=== PATIENT | female | born 1955 | race Caucasian/White ===

== ENCOUNTER 2016-07-20 08:54 | Day surgery (SDC) | payer MEDICARE, MEDICAID ==
[2016-07-20 09:42] LABS: HEMATOCRIT 32.1 % (36.0-47.0); HEMOGLOBIN 10.7 g/dL (12.0-15.5); MEAN CORPUSCULAR HEMOGLOBIN 34.2 pg (27.0-33.4); MEAN CORPUSCULAR HGB CONC 33.1 g/dL (32.0-36.0); MEAN CORPUSCULAR VOLUME 103 fl (80-97); RED BLOOD COUNT 3.12 10^6/uL (3.72-5.28); RED CELL DISTRIBUTION WIDTH 19.1 % (11.5-14.0); WHITE BLOOD COUNT 6.7 10^3/uL (4.0-10.5)
[2016-07-20 09:54] LABS: ANION GAP 8 (5-19); BLOOD UREA NITROGEN 21 mg/dL (7-20); CARBON DIOXIDE 26 mmol/L (22-30); CHLORIDE 98 mmol/L (98-107); CREATININE RESULT 2.99 mg/dL (0.52-1.25); GLUCOSE 109 mg/dL (75-110); SODIUM 132.4 mmol/L (137-145)
[2016-07-20] MEDS ORDERED: LIDOCAINE 0.5% INJ-PF (5 MG/ML) 50 ML SDV ONE (10:50)
[2016-07-20] MEDS ORDERED: MIDAZOLAM 2 MG/2 ML INJ ONE (10:51)
[2016-07-20] MEDS ORDERED: FENTANYL CITRATE INJ/PF 100 MCG/2 ML AMPUL ONE (10:51)
[2016-07-20] MEDS ORDERED: BACITRACIN INJ 50,000 UNIT VIAL INJ PRN (11:00)
[2016-07-20] MEDS ORDERED: VANCOMYCIN HCL 500 MG in DEXTROSE 5%-WATER 100 ML IV ONE (11:30)
[2016-07-20 13:45] VITALS: BP 127/55
--- NOTE | 2016-07-20 19:00 | EKG REPORT ---
SEVERITY:- ABNORMAL ECG - SINUS RHYTHM IVCD, CONSIDER ATYPICAL RBBB LVH WITH IVCD, LAD AND SECONDARY REPOL ABNRM : Confirmed by: Zack Mcknight MD 20-Jul-2016 18:59:55
--- NOTE | 2016-07-21 14:34 | PDOC DISCHARGE SUMMARY ---
Discharge Summary (SDC) - Discharge Final Diagnosis: #1 malfunctioning PermCath catheter. #2 end-stage renal disease on hemodialysis. #3 diabetes mellitus type II. #4 history of left breast cancer. #5 peripheral vascular disease. #6 hypertension. Date of Surgery: 07/20/16 Discharge Date: 07/21/16 Condition: Fair Forms: ASU Anesthesia D/C Instruction, Discharge POC-Surgical Service Treatment or Instructions: #1 patient may be discharged for a criteria. #2 dressings to be left in place for hemodialysis. #3 medications to continue per medication reconciliation sheet. #4 follow-up in office in about 1 month. Referrals: BRUCE HAWLEY MD [ACTIVE STAFF] - 07/27/16 2:15 pm Respiratory Treatments at Home: Deep Breathing/Coughing Discharge Activity: Activity As Tolerated, Balance Activity w/Rest, No Driving, No Lifting Over 10 Pounds, Slowly Increase Activity Activities Provided by Home Health Agency: [facility] Report the Following to Your Physician Immediately: Shortness of Breath, Nausea , Vomiting, Increase in Pain, Signs of Hyperglycemia, Signs of Hypoglycemia, Fever over 101 Degrees, Unusual Bleeding, Redness, Swelling, Warmth, Increased Soreness, Drainage-Foul Smelling, Large Clots, Numbness, Tingling Sensation, IV Site Infection Signs
--- NOTE | 2016-07-21 14:49 | Operative Report ---
Operative Report DATE OF SURGERY: 07/20/16 PREOPERATIVE DIAGNOSIS: #1 malfunctioning PermCath catheter. #2 end-stage renal disease on hemodialysis. #3 diabetes mellitus type II. #4 history of left breast cancer. #5 peripheral vascular disease. #6 hypertension. POSTOPERATIVE DIAGNOSIS: #1 malfunctioning PermCath catheter. Post angioplasty of the sheath and replacement of permacatheter. #2 end-stage renal disease on hemodialysis. #3 diabetes mellitus type II. #4 history of left breast cancer. #5 peripheral vascular disease. #6 hypertension. OPERATION: #1 central venous angiogram. #2 angioplasty of fibrin sheath centrally. #3 insertion of new PermCath catheter via right internal jugular vein, separate exit site. SURGEON: BRUCE CHRISTINE [employer] SALES ESTIMATOR: none ANESTHESIA: Moderate Sedation TISSUE REMOVED OR ALTERED: Not applicable COMPLICATIONS: None ESTIMATED BLOOD LOSS: 5 mL. INTRAOPERATIVE FINDINGS: Of a right-sided PermCath catheter. A long fibrin sheath noted mostly in the superior vena cava. Also noted is a relatively small right atrium, boat-shaped. The previous catheter and the existing left- sided Port-A-Cath are actually in the superior vena cava. The new catheter was intentionally placed so that the tip was well within the atrial pool. Also noted is exceptionally high placement of this catheter. An incision low in the neck from a previous catheter is noted this and was actually of good 4 cm above the clavicle. Every effort was made to insert a new catheter as low as possible yet utilizing the same internal jugular entry. Easy egress of blood and ingress of heparinized solution pertains to both ports. The catheter angiogram demonstrated smooth flow of contrast through the right atrium, ventricle and pulmonary outflow tract. Hardcopy documentation preserved. The procedure well tolerated. The fibrin sheath was completely obliterated by angioplasty with an 8 mm balloon. 4 and after pictures are preserved and hardcopy. PROCEDURE: After obtaining informed consent, the patient was taken to the [facility] and positioned supine. The right neck and chest were prepared with chlorhexidine and draped out with sterile linen. After the " universal timeout", in which it was verified that the patient continued to receive antibiotic, the procedure commenced. Local anesthesia was infiltrated at the entry site in the neck. An incision made and dissection proceeded bluntly down to the catheter which was transected and the proximal portion replaced with a 0.035 guidewire. This was followed by introduction of a 0.035 guidewire the tip of which was placed down into the inferior vena cava . A 7 Uzbek introducer was now placed and through this an angiogram obtained which showed the fibrin sheath. An 8 mm angioplasty balloon was now placed over this. When she such that the sheath was covered. The balloon was inflated hand injection up to an estimated 12 viral. It is deflated after 30 seconds and the completion angiogram showed a much larger superior vena cava with obliteration of the fibrin sheath. A 28 cm long perm catheter was now positioned over the chest and an exit site marked and locally anesthetized ,the catheter was placed between the 2 incisions. Proximally, the catheter was now positioned using a peel-away sheath, after dilation. Easy ingress of heparinized solution and egress of blood obtained through both ports. A completion angiogram was done by injecting contrast. The findings were as dictated. The neck incision was now closed using interrupted 3-0 PDS to the subcutaneous tissues, the catheter was anchored at the exit site using 3-0 PDS. A Biopatch device was now placed adjacent to the catheter. Dressings were applied and the procedure concluded. Copies of the dictated operative report for Dr. Bruce Ackerman MD.concluded. Copies of the dictated operative report for Dr. Bruce Ackerman MD.
== END 2016-07-20 13:48 | disposition home health service (06) ==
LOC: CCL 08:54
PROVIDERS: ATTEND Surgery
PROC: 05HM33Z Insertion of Infusion Device into Right Internal Jugular Vein, Percutaneous Approach (ICD-10-PCS; principal; 2016-07-20)
DX: T82.858A Stenosis of other vascular prosthetic devices, implants and grafts, initial encounter (principal); Y83.2 Surgical operation with anastomosis, bypass or graft as the cause of abnormal reaction of the patient, or of later complication, without mention of misadventure at the time of the procedure; E11.22 Type 2 diabetes mellitus with diabetic chronic kidney disease; I12.0 Hypertensive chronic kidney disease with stage 5 chronic kidney disease or end stage renal disease; N18.6 End stage renal disease; Z99.2 Dependence on renal dialysis; I73.9 Peripheral vascular disease, unspecified; H54.8 Legal blindness, as defined in USA; Z85.3 Personal history of malignant neoplasm of breast; Z88.0 Allergy status to penicillin
CPT/HCPCS: 36415; 82962; 85027; 80048; 36907; 36581; 77001; 71010; 93005; 93010; C1725; C1752; C1894; J2250; J3490 ×2; J3010; J3370; J1644

== ENCOUNTER 2016-07-30 14:51 | Inpatient (IN) | payer MEDICARE, MEDICAID ==
--- NOTE | 2016-07-30 15:30 | ER Document Report ---
ED General - General Stated Complaint: ALTERED MENTAL STATUS Time Seen by Provider: 07/30/16 15:24 Mode of Arrival: Stretcher Information source: Patient TRAVEL OUTSIDE OF THE [place] IN LAST 30 DAYS: No - HPI Patient complains to provider of: altered mental status Onset: This morning Notes: Patient is a 61-year-old female sent from local intermediate for complaints of altered mental status that apparently was first noted today, patient is a dialysis patient was supposed to have dialysis today, however the intermediate staff reports that she refused, patient is nonverbal on my evaluation, however cries out anytime I palpate any area of her body - Related Data Allergies/Adverse Reactions: Penicillins Allergy (Unknown, Verified 08/21/15 08:56) Unknown reaction, THINKS IT WAS HIVES Past Medical History - General Information source: Transfer Record, Outside Facility Records - Social History Smoking Status: Unknown if Ever Smoked Family History: Reviewed & Not Pertinent - Past Medical History Cardiac Medical History: Reports: Hx Hypercholesterolemia, Hx Hypertension, Hx Peripheral Vascular Disease Denies: Hx Coronary Artery Disease, Hx Heart Attack Pulmonary Medical History: Denies: Hx Asthma, Hx Bronchitis, Hx COPD, Hx Pneumonia Neurological Medical History: Reports: Hx Cerebrovascular Accident - X 5. Denies: Hx Seizures Endocrine Medical History: Reports: Hx Diabetes Mellitus Type 2 - IDDM Renal/ Medical History: Reports: Hx End Stage Renal Disease, Hx Hemodialysis - Malignancy Medical History: Reports: Hx Breast Cancer GI Medical History: Reports: Hx Gastroesophageal Reflux Disease Musculoskeltal Medical History: Denies Hx Arthritis, Reports Hx Gout, Reports Hx Muscle Weakness Skin Medical History: Reports Hx Cellulitis Past Surgical History: Reports: Hx Cholecystectomy, Hx Hysterectomy, Hx Mastectomy - right, Hx Orthopedic Surgery - right toe amputation - Immunizations Immunizations up to date: Yes Hx Diphtheria, Pertussis, Tetanus Vaccination: No Hx Pneumococcal Vaccination: 11/18/13 Review of Systems - Review of Systems -: Yes ROS unobtainable due to patient's medical condition Physical Exam - Vital signs Vitals: Resp Pulse Ox 23 H 93 07/30/16 15:15 07/30/16 15:15 Interpretation: Tachycardic - General General appearance: Alert - Nonverbal In distress: None - HEENT Head: Normocephalic, Atraumatic Eyes: Normal Conjunctiva: Normal Extraocular movements intact: Yes Eyelashes: Normal Pupils: PERRL Mucous membranes: Dry Pharynx: Normal Neck: Normal - Respiratory Respiratory status: No respiratory distress, Other - Dialysis catheter present in right anterior chest wall Chest status: Nontender Breath sounds: Normal Chest palpation: Normal - Cardiovascular Rhythm: Regular, Tachycardia - Abdominal Inspection: Normal Distension: No distension Bowel sounds: Normal Tenderness: Nontender Organomegaly: No organomegaly - Back Back: Normal - Extremities General upper extremity: Edema, Other - Multiple ecchymoses General lower extremity: Edema - Neurological Winter Coma Scale Eye Opening: Spontaneous Winter Coma Scale Verbal: Inappropriate [place]avares Coma Scale Motor: Withdraws to Pain Winter Coma Scale Total: 11 - Skin Skin Temperature: Warm Skin Moisture: Dry Skin Color: Pale Course - Re-evaluation Re-evalutation: 07/30/16 16:57 Patient was discussed with Dr. Quinones, her requested that I speak with nephrology prior to admitting patient Patient was discussed with on-call chocolate finisher, Dr. Ortega, who agrees with admission, and she will ensure that patient receives dialysis on Monday - Vital Signs Vital signs: Temp Pulse Resp BP Pulse Ox 23 H 100 07/30/16 15:15 07/30/16 15:24 - Laboratory Result Diagrams: 07/30/16 16:13 07/30/16 15:23 Laboratory results interpreted by me: 07/30/16 07/30/16 07/30/16 15:23 15:23 15:23 WBC RBC Hgb MCV MCH MCHC RDW Plt Count Seg Neuts % (Manual) Lymphocytes % (Manual) Monocytes % (Manual) Abs Neuts (Manual) Sodium 134.6 L BUN 23 H Creatinine 2.97 H Est GFR ( Amer) 19 L Est GFR (Non-Af Amer) 16 L Calcium 8.1 L Direct Bilirubin 1.2 H AST 96 H Alkaline Phosphatase 1146 H Creatine Kinase < 20 L NT-Pro-B Natriuret Pep 68642 H Total Protein 4.6 L Albumin 1.8 L Urine Protein >=500 H Urine Blood SMALL H Ur Leukocyte Esterase LARGE H 07/30/16 16:13 WBC 14.5 H RBC 3.35 L Hgb 11.5 L MCV 112 H D MCH 34.2 H MCHC 30.7 L RDW 18.5 H Plt Count 132 L Seg Neuts % (Manual) 92 H Lymphocytes % (Manual) 6 L Monocytes % (Manual) 2 L Abs Neuts (Manual) 13.3 H Sodium BUN Creatinine Est GFR ( Amer) Est GFR (Non-Af Amer) Calcium Direct Bilirubin AST Alkaline Phosphatase Creatine Kinase NT-Pro-B Natriuret Pep Total Protein Albumin Urine Protein Urine Blood Ur Leukocyte Esterase - Diagnostic Test Radiology reviewed: Image reviewed, Reports reviewed - EKG Interpretation by Me EKG shows normal: Sinus rhythm Rate: Normal Rhythm: NSR When compared to previous EKG there are: No significant change Discharge - Discharge Clinical Impression: Acute encephalopathy, End-stage renal disease Urinary tract infection Qualifiers: Urinary tract infection type: site unspecified Hematuria presence: without hematuria Qualified Code(s): N39.0 - Urinary tract infection, site not specified Leukocytosis Qualifiers: Leukocytosis type: unspecified Qualified Code(s): D72.829 - Elevated white blood cell count, unspecified Condition: Fair Disposition: ADMITTED INPATIENT Admitting Provider: [facility] Admitted: Telemetry
[2016-07-30 15:59] LABS: APPEARANCE,URINE TURBID; BILIRUBIN,URINE NEGATIVE (NEGATIVE); GLUCOSE, URINE NEGATIVE (NEGATIVE); KETONES,URINE NEGATIVE (NEGATIVE); LEUKOCYTE ESTERASE,URINE LARGE (NEGATIVE); NITRITE,URINE NEGATIVE (NEGATIVE); PROTEIN,URINE >=500 mg/dL (NEGATIVE); URINE SPECIFIC GRAVITY 1.016; UROBILINOGEN,URINE NEGATIVE mg/dL (<2.0)
[2016-07-30 16:00] LABS: ALANINE AMINOTRANSFERASE 48 U/L (9-52); ALBUMIN 1.8 g/dL (3.5-5.0); ALKALINE PHOSPHATASE 1146 U/L (38-126); ANION GAP 12 (5-19); ASPARTATE AMINO TRANSFERASE 96 U/L (14-36); BILIRUBIN,DIRECT 1.2 mg/dL (0.0-0.4); BILIRUBIN,TOTAL 1.2 mg/dL (0.2-1.3); BLOOD UREA NITROGEN 23 mg/dL (7-20); CALCIUM 8.1 mg/dL (8.4-10.2); CARBON DIOXIDE 25 mmol/L (22-30); CHLORIDE 98 mmol/L (98-107); CREATININE RESULT 2.97 mg/dL (0.52-1.25); GLUCOSE 91 mg/dL (75-110); LIPASE 35.3 U/L (23-300); POTASSIUM 3.9 mmol/L (3.6-5.0); SODIUM 134.6 mmol/L (137-145); TOTAL PROTEIN 4.6 g/dL (6.3-8.2)
[2016-07-30 16:01] LABS: CREATINE KINASE < 20 U/L (30-135)
[2016-07-30] MEDS ORDERED: CEFTRIAXONE INJ 1000 MG VIAL IV ONE (16:08)
[2016-07-30 16:12] LABS: CREATINE KINASE MB 0.55 ng/mL (<4.55); TROPONIN I 0.013 ng/mL
[2016-07-30 16:20] LABS: VENOUS BLOOD HCO3 25.6 mmol/L (20-32); VENOUS BLOOD PCO2 40.9 mmHg (35-63); VENOUS BLOOD PH 7.42 (7.30-7.42)
[2016-07-30 16:29] LABS: HEMATOCRIT 37.3 % (36.0-47.0); HEMOGLOBIN 11.5 g/dL (12.0-15.5); HGB HCT DIFFERENCE -2.8; MEAN CORPUSCULAR HEMOGLOBIN 34.2 pg (27.0-33.4); MEAN CORPUSCULAR HGB CONC 30.7 g/dL (32.0-36.0); RED BLOOD COUNT 3.35 10^6/uL (3.72-5.28); RED CELL DISTRIBUTION WIDTH 18.5 % (11.5-14.0); WHITE BLOOD COUNT 14.5 10^3/uL (4.0-10.5)
[2016-07-30 16:40] LABS: BASOPHILS % (MANUAL) 0 % (0-2); EOSINOPHILS % (MANUAL) 0 % (0-6); LYMPHOCYTES % (MANUAL) 6 % (13-45); NUCLEATED RED BLOOD CELLS 1 /100 WBC (0); TOTAL CELLS COUNTED 100
[2016-07-30 16:44] LABS: ANISOCYTOSIS 1+; PLATELET CLUMPS PRESENT; POIKILOCYTOSIS 1+; POLYCHROMASIA SLIGHT; TARGET CELLS 1+
[2016-07-30 16:47] LABS: MEAN CORPUSCULAR VOLUME 112 fl (80-97)
[2016-07-31] MEDS ORDERED: ONDANSETRON 4 MG TAB.RAPDIS PO PRN (04:00)
[2016-07-31] MEDS ORDERED: MAG HYDROX/AL HYDROX/SIMETH SUSP 30 ML UDCUP PO PRN (04:00)
[2016-07-31] MEDS ORDERED: ACETAMINOPHEN 325 MG TABLET PO PRN (04:00)
[2016-07-31] MEDS: OXYCODONE-ACETAMINOPHEN 5-325 MG TABLET PO PRN ×3 (04:36→21:29)
[2016-07-31] MEDS: HYDRALAZINE HCL 10 MG TABLET PO PRN ×2 (04:36→08:42)
[2016-07-31] MEDS ORDERED: DEXTROSE 50%-WATER SYRINGE 12.5 GM/25 ML DOSE IV PRN (06:05)
[2016-07-31] MEDS ORDERED: DEXTROSE 40% GEL 15 GM TUBE PO PRN (06:05)
[2016-07-31] MEDS ORDERED: DEXTROSE 40% GEL 15 GM TUBE X 2 PO PRN (06:05)
[2016-07-31] MEDS ORDERED: GLUCAGON,HUMAN RECOMB 1 MG INJ IM PRN (06:05)
[2016-07-31] MEDS ORDERED: INSULIN REG, HUMAN 100 UNIT/ML 3 ML VIAL (PYX) SUBCUT PRN (06:05)
[2016-07-31] MEDS ORDERED: DEXTROSE 50%-WATER SYRINGE 25 GM/50 ML DOSE IV PRN (06:05)
[2016-07-31] MEDS: CLONIDINE HCL 0.2 MG TABLET PO SCH ×3 (06:16→21:29)
[2016-07-31] MEDS: HEPARIN SOD (PORCINE) 5,000 UNIT/ML 1 ML SYRINGE SUBCUT SCH ×3 (06:16→21:29)
[2016-07-31 06:59] LABS: HEMOGLOBIN 10.6 g/dL (12.0-15.5); HGB HCT DIFFERENCE -2.2; MEAN CORPUSCULAR HEMOGLOBIN 34.2 pg (27.0-33.4); MEAN CORPUSCULAR HGB CONC 31.2 g/dL (32.0-36.0); MEAN CORPUSCULAR VOLUME 109 fl (80-97); RED BLOOD COUNT 3.11 10^6/uL (3.72-5.28); RED CELL DISTRIBUTION WIDTH 17.9 % (11.5-14.0); WHITE BLOOD COUNT 16.1 10^3/uL (4.0-10.5)
[2016-07-31 07:14] LABS: ANION GAP 6 (5-19); BLOOD UREA NITROGEN 26 mg/dL (7-20); CARBON DIOXIDE 26 mmol/L (22-30); CHLORIDE 100 mmol/L (98-107); CREATININE RESULT 3.02 mg/dL (0.52-1.25); GLUCOSE 78 mg/dL (75-110); POTASSIUM 4.1 mmol/L (3.6-5.0); SODIUM 132.4 mmol/L (137-145)
[2016-07-31 07:33] LABS: BASOPHILS % (MANUAL) 0 % (0-2); EOSINOPHILS % (MANUAL) 0 % (0-6); LYMPHOCYTES % (MANUAL) 4 % (13-45); TOTAL CELLS COUNTED 100
[2016-07-31 07:37] LABS: ANISOCYTOSIS 1+; POIKILOCYTOSIS 1+; POLYCHROMASIA SLIGHT; TARGET CELLS SLIGHT; TEAR DROP CELLS SLIGHT
[2016-07-31] MEDS: IPRATROPIUM/ALBUTEROL 0.5-2.5 MG/3 ML AMPUL NEB PRN ×2 (08:42→12:17)
[2016-07-31] MEDS ORDERED: HYDRALAZINE HCL 10 MG TABLET PO PRN (08:52)
[2016-07-31] MEDS ORDERED: (PENDING PHARMACY ID) (Cholecalciferol (Vitamin D3) [Vitamin D3] 1 TAB) PO SCH (10:00)
[2016-07-31] MEDS ORDERED: NIFEDIPINE PO SCH (10:00)
[2016-07-31] MEDS ORDERED: FAMOTIDINE 20 MG TABLET PO SCH (10:00)
[2016-07-31] MEDS ORDERED: LANSOPRAZOLE 30 MG TAB.RAP.DR PO SCH (10:00)
[2016-07-31] MEDS ORDERED: NIFEDIPINE 30 MG TAB.ER.24 PO SCH (10:00)
[2016-07-31] MEDS: CHOLECALCIFEROL (D3) 400 UNIT TABLET PO SCH (10:37)
[2016-07-31] MEDS: ISOSORBIDE MONONITRATE 30 MG TAB.ER.24H PO SCH (10:37)
[2016-07-31] MEDS: ANASTROZOLE 1 MG TABLET PO SCH (10:37)
[2016-07-31] MEDS: ASPIRIN/DIPYRIDAMOLE 25-200 MG 1 CAP.SR CPMP.12HR PO SCH ×2 (10:37→17:13)
[2016-07-31] MEDS: ALLOPURINOL 100 MG TABLET PO SCH (10:37)
[2016-07-31] MEDS: ASCORBIC ACID 500 MG TABLET PO SCH (10:37)
[2016-07-31] MEDS: DOCUSATE SODIUM 100 MG CAPSULE PO SCH (10:37)
[2016-07-31] MEDS: FOLIC ACID/VITAMIN B COMP W-C CAPSULE PO SCH (10:37)
[2016-07-31] MEDS: FERROUS SULFATE 325 MG TABLET PO SCH (10:37)
[2016-07-31] MEDS: POLYVINYL ALCOHOL 1.4% OPH SOLN 15 ML OU SCH ×4 (10:41→22:00)
[2016-07-31] MEDS: ERTAPENEM SODIUM 0.5 GM in NORMAL SALINE 50 ML IV SCH (11:26)
--- NOTE | 2016-07-31 11:38 | EKG REPORT ---
SEVERITY:- ABNORMAL ECG - SINUS RHYTHM LVH WITH SECONDARY REPOLARIZATION ABNORMALITY PROBABLE INFERIOR INFARCT, OLD INCOMPLETE RBBB VS RVH : Confirmed by: Roberto Carlos Sanchez 31-Jul-2016 11:38:10
--- NOTE | 2016-07-31 15:46 | PDOC H&P ---
History of Present Illness Admission Date/PCP: 07/30/16 22:04 Venancio QUINTANILLA MD History of Present Illness: MEGHA HOPKINS is a 61 year old female, history of CVA, history of end-stage renal disease on maintenance hemodialysis, resident of the shelter at [place], she was transferred from the nursing of the emergency room because patient was not responding. Family said she normally communicates but she is not responding to verbal communication at this time. She was seen in the emergency room, it was felt that she has UTI and that the altered mental status was from UTI. Before patient was referred to the ER, I received a call from the shelter about this patient that patient refused hemodialysis and that she was not her self .I suggested to shelter staff to transfer the patient to the emergency room for evaluation. When I saw the patient on the floor she was not responding to verbal commands, she grimaces to noxious stimulus , sternal pressure CT head was done without contrast it showed old large left MCA infarct, no evidence of acute infarct patient is a full code, I am not convinced the altered mental status is from UTI, MRI of the brain will be ordered, MRI is more specific in the diagnosis of acute stroke no history could be obtained from this patient, she is altered mental status, she gets dialysis on days, Monday and Saturdays. Past Medical History Cardiac Medical History: Reports: Hyperlipidema, Hypertension, Peripheral Vascular Disease Pulmonary Medical History: Neurological Medical History: Reports: Ischemic CVA Endocrine Medical History: Reports: Diabetes Mellitus Type 2 - IDDM Renal/ Medical History: Reports: End Stage Renal Disease Malignancy Medical History: Reports: Breast Cancer GI Medical History: Reports: Gastroesophageal Reflux Disease Musculoskeltal Medical History: Reports: Gout Hematology: Reports: Anemia Past Surgical History Past Surgical History: Reports: Cholecystectomy, Hysterectomy, Mastectomy - right, Orthopedic Surgery - right toe amputation, Vascular Surgery - picc Social History Smoking Status: Never Smoker Frequency of Alcohol Use: None Hx Recreational Drug Use: No Hx Prescription Drug Abuse: No Family History Family History: Reviewed & Not Pertinent Parental Family History Reviewed: Yes Children Family History Reviewed: Yes Sibling(s) Family History Reviewed.: Yes Medication/Allergy Home Medications: Allopurinol [Zyloprim 100 mg Tablet] 100 mg PO DAILY 04/21/15 Atorvastatin Calcium [Lipitor 40 mg Tablet] 40 mg PO DAILY 04/21/15 Cholecalciferol (Vitamin D3) [Vitamin D3] 400 units PO DAILY 04/21/15 Docusate Sodium [Colace 100 mg Capsule] 100 mg PO DAILY 04/21/15 Famotidine [Pepcid 20 mg Tablet] 20 mg PO DAILY 04/21/15 Ferrous Sulfate [Albafort] 325 mg PO DAILY 04/21/15 Nifedipine [Procardia Xl] 90 mg PO DAILY 04/21/15 Acetaminophen [Pain Relief] 650 mg PO Q4HP PRN 12/30/15 Anastrozole [Arimidex 1 mg Tablet] 1 mg PO DAILY 12/30/15 Ascorbic Acid [Vitamin C 500 mg Tablet] 500 mg PO DAILY 12/30/15 Isosorbide Mononitrate [Imdur 30 mg Tablet.er] 30 mg PO DAILY 12/30/15 Ondansetron HCl [Zofran 4 mg Tablet] 4 mg PO Q6H PRN 12/30/15 B Complex & C No.20/Folic Acid [Nephrocaps Softgel] 1 mg PO DAILY 07/20/16 Clonidine HCl [Catapres 0.2 mg Tablet] 0.2 mg PO Q8 07/20/16 Aspirin/Dipyridamole [Aggrenox 25 mg-200 mg Capsule] 1 tab PO BID 07/31/16 Bismuth Subsalicylate [Maalox] 15 ml PO Q4H PRN 07/31/16 Collagenase Clostridium Hist. [Santyl] 30 gm TD DAILYP PRN 07/31/16 Heparin Sodium,Porcine/Pf [Heparin Flush 10 Units/ml Syr] 3 ml IV ASDIR PRN Hydralazine HCl [Apresoline 10 mg Tablet] 10 tab PO Q4H PRN 07/31/16 Insulin Glargine,Hum.rec.anlog [Lantus Insulin 100 Unit/1 ml 10 ml] 12 units SUBCUT QPM 07/31/16 Insulin Regular, Human [Humulin R (Pyxis) Insulin 100 Unit/ml 3Ml] 0 unit SUBCUT .SLD SCALE 07/31/16 Ipratropium/Albuterol Sulfate [Duoneb 3 ml Ampul] 1 unit NEB Q6H PRN 07/31/16 Mirtazapine [Remeron] 7.5 mg PO QHS 07/31/16 Omeprazole 20 mg PO DAILY 07/31/16 Oxycodone HCl/Acetaminophen [Percocet 5-325 mg Tablet] 1 tab PO Q8H PRN Polyvinyl Alcohol [Liquid Tears] 1 drop OU QID 07/31/16 Allergies/Adverse Reactions: Penicillins Allergy (Unknown, Verified 08/21/15 08:56) Unknown reaction, THINKS IT WAS HIVES Review of Systems ROS unobtainable: Due to mental status Physical Exam Vital Signs: Temp Pulse Resp BP Pulse Ox 97.7 F 88 20 101/48 L 100 07/31/16 07:44 07/31/16 11:48 07/31/16 11:48 07/31/16 11:48 07/31/16 11:48 Intake & Output 07/30/16 07/31/16 08/01/16 06:59 06:59 06:59 Intake Total 0 Output Total 0 Balance 0 Weight 100.5 kg 100.5 kg General appearance: PRESENT: other - Unresponsive but grimaces to noxious stimulus Eye exam: PRESENT: other - The pupil is pinpoint Neck exam: PRESENT: other - The neck is supple Respiratory exam: PRESENT: clear to auscultation jay Cardiovascular exam: PRESENT: +S1, +S2 GI/Abdominal exam: PRESENT: soft Neurological exam: PRESENT: altered, motor sensory deficit - Right-sided hemiplegia Results Laboratory Results: 07/31/16 06:20 07/31/16 06:20 07/31/16 07/31/16 06:20 06:20 WBC 16.1 H RBC 3.11 L Hgb 10.6 L Hct 34.0 L MCV 109 H MCH 34.2 H MCHC 31.2 L RDW 17.9 H Plt Count 120 L Seg Neutrophils % Not Reportable Lymphocytes % Not Reportable Monocytes % Not Reportable Eosinophils % Not Reportable Basophils % Not Reportable Absolute Neutrophils Not Reportable Absolute Lymphocytes Not Reportable Absolute Monocytes Not Reportable Absolute Eosinophils Not Reportable Absolute Basophils Not Reportable Sodium 132.4 L Potassium 4.1 Chloride 100 Carbon Dioxide 26 Anion Gap 6 BUN 26 H Creatinine 3.02 H Est GFR ( Amer) 19 L Est GFR (Non-Af Amer) 16 L Glucose 78 Calcium 8.0 L Impressions: Chest X-Ray 07/30/16 15:24 IMPRESSION: LIMITED STUDY. SUSPECT LEFT PLEURAL EFFUSION WITH LEFT LOWER LOBE ATELECTASIS VERSUS INFILTRATE. Head CT 07/31/16 00:00 IMPRESSION: MILD CHRONIC CHANGES OF ATROPHY AND MICROVASCULAR ISCHEMIA. The previously described large old left MCA infarct appears stable. NO ACUTE PROCESS. Assessment & Plan - Diagnosis (1) Acute encephalopathy Is this a current diagnosis for this admission?: YesPlan: The differential diagnosis is long, it could be CVA, infection, medication, she was admitted last night for presumptive UTI as the etiology of the encephalopathy she has had 2 doses of antibiotic but that is no change in the symptoms of this patient she is still altered family said she normally will communicate but she is not doing that today. CVA is very high on the list CT head was done negative for acute CVA but usually CT scan finding is late in stroke cases MRI of the brain will be ordered because MRI is more specific in early cases of stroke. (3) Urinary tract infection Qualifiers: Urinary tract infection type: site unspecified Hematuria presence: without hematuria Qualified Code(s): N39.0 - Urinary tract infection, site not specified Is this a current diagnosis for this admission?: Yes (4) Breast cancer Qualifiers: Breast location: unspecified site of breast Estrogen receptor status: unspecified Patient sex: female Laterality: unspecified laterality Qualified Code(s): C50.919 - Malignant neoplasm of unspecified site of unspecified female breast Is this a current diagnosis for this admission?: Yes (5) Diabetes Qualifiers: Diabetes mellitus type: type 2 Diabetes mellitus complication status: with kidney complications Diabetes mellitus complication detail: with nephropathy Diabetes mellitus shelter insulin use: with long term care administrator use Qualified Code(s): E11.21 - Type 2 diabetes mellitus with diabetic nephropathy; Z79.4 - manager terminal (current) use of insulin Is this a current diagnosis for this admission?: Yes (6) Hypertension Qualifiers: Hypertension type: essential hypertension Qualified Code(s): I10 - Essential (primary) hypertension Is this a current diagnosis for this admission?: Yes (8) Altered mental state Qualifiers: Altered mental status type: disorientation Qualified Code(s): R41.0 - Disorientation, unspecified Is this a current diagnosis for this admission?: Yes (9) ESRD on dialysis Is this a current diagnosis for this admission?: YesPlan: Patient does not need dialysis at the moment
[2016-07-31] MEDS ORDERED: IPRATROPIUM/ALBUTEROL 0.5-2.5 MG/3 ML AMPUL NEB PRN (16:07)
[2016-07-31] MEDS ORDERED: INSULIN LISPRO 100 UNIT/ML 3 ML VIAL SUBCUT PRN (17:12)
[2016-07-31] MEDS: INSULIN GLARGINE,HUM.REC.ANLOG 1,000 UNIT/10 ML UNIT SUBCUT SCH (17:13)
[2016-07-31] MEDS ORDERED: LORAZEPAM INJ 2 MG/1 ML VIAL IV PRN (17:38)
[2016-07-31] MEDS: ATORVASTATIN CALCIUM 40 MG TABLET PO SCH (21:29)
[2016-07-31] MEDS: MIRTAZAPINE 15 MG TABLET PO SCH (21:29)
[2016-08-01] MEDS: OXYCODONE-ACETAMINOPHEN 5-325 MG TABLET PO PRN (03:51)
[2016-08-01] MEDS: CLONIDINE HCL 0.2 MG TABLET PO SCH ×3 (05:22→22:36)
[2016-08-01] MEDS: HEPARIN SOD (PORCINE) 5,000 UNIT/ML 1 ML SYRINGE SUBCUT SCH ×3 (05:22→22:31)
[2016-08-01 07:47] LABS: ANION GAP 8 (5-19); BLOOD UREA NITROGEN 31 mg/dL (7-20); CARBON DIOXIDE 24 mmol/L (22-30); CHLORIDE 100 mmol/L (98-107); CREATININE RESULT 3.32 mg/dL (0.52-1.25); GLUCOSE 73 mg/dL (75-110); POTASSIUM 4.5 mmol/L (3.6-5.0); SODIUM 131.8 mmol/L (137-145)
[2016-08-01] MEDS ORDERED: VANCOMYCIN HCL 0 MG in DEXTROSE 5%-WATER 250 ML IV NR (08:15)
[2016-08-01 09:43] LABS: HEMATOCRIT 32.8 % (36.0-47.0); HEMOGLOBIN 10.5 g/dL (12.0-15.5); HGB HCT DIFFERENCE -1.3; MEAN CORPUSCULAR HEMOGLOBIN 34.8 pg (27.0-33.4); MEAN CORPUSCULAR HGB CONC 31.9 g/dL (32.0-36.0); MEAN CORPUSCULAR VOLUME 109 fl (80-97); RED BLOOD COUNT 3.01 10^6/uL (3.72-5.28); RED CELL DISTRIBUTION WIDTH 17.7 % (11.5-14.0); WHITE BLOOD COUNT 16.4 10^3/uL (4.0-10.5)
[2016-08-01] MEDS ORDERED: VANCOMYCIN HCL 1,000 MG in DEXTROSE 5%-WATER 250 ML IV PRN (10:06)
--- NOTE | 2016-08-01 10:34 | PDOC PROGRESS REPORT ---
Subjective Progress Note for:: 08/01/16 Subjective:: This is a 61-year-old female with multiple comorbidity came to the emergency department for the altered mental status and initial work suggest the most likely a sepsis. Patient is not responding currently. Patient's blood pressure is still in the 70. Patient's MRI of the head did not show any acute infarctions.Patient's urine culture shows gram-negative rods and the patient also have a multiple other comorbidity and discussed with the brother on the bedside and patient still in a full code and patient at this point transfer to the intensive care unit for further evaluation. Patient is currently on the dialysis room but the blood pressure was low and discussed with the nephrology at this point unable to do the dialysis will put the patient on the pressure in the later on the evaluate again for the dialysis. Physical Exam Vital Signs: Temp Pulse Resp BP Pulse Ox 97.3 F 78 12 82/58 L 91 L 08/01/16 04:07 08/01/16 07:00 08/01/16 07:00 08/01/16 07:00 08/01/16 07:00 Intake & Output 07/31/16 08/01/16 08/02/16 06:59 06:59 06:59 Intake Total 0 35 Output Total 0 0 Balance 0 35 Weight 100.5 kg 102.2 kg Physical Exam: Patient is currently not respondingBut no acute respiratory distress Head exam: PRESENT: normocephalic Respiratory exam: PRESENT: clear to auscultation jya Cardiovascular exam: PRESENT: +S1, +S2 GI/Abdominal exam: PRESENT: normal bowel sounds, soft Extremities exam: PRESENT: pedal edema Additional comments: Some mild redness present on the right extremity upper extremity Neurological exam: PRESENT: other Additional comments: Patient is not responding so unable to do any exam Results Laboratory Results: 08/01/16 08:20 08/01/16 07:02 08/01/16 08/01/16 08/01/16 07:02 07:02 08:20 WBC Cancelled 16.4 H RBC Cancelled 3.01 L Hgb Cancelled 10.5 L Hct Cancelled 32.8 L MCV Cancelled 109 H MCH Cancelled 34.8 H MCHC Cancelled 31.9 L RDW Cancelled 17.7 H Plt Count Cancelled 132 L Seg Neutrophils % Cancelled Not Reportable Lymphocytes % Cancelled Not Reportable Monocytes % Cancelled Not Reportable Eosinophils % Cancelled Not Reportable Basophils % Cancelled Not Reportable Absolute Neutrophils Cancelled Not Reportable Absolute Lymphocytes Cancelled Not Reportable Absolute Monocytes Cancelled Not Reportable Absolute Eosinophils Cancelled Not Reportable Absolute Basophils Cancelled Not Reportable Sodium 131.8 L Potassium 4.5 Chloride 100 Carbon Dioxide 24 Anion Gap 8 BUN 31 H Creatinine 3.32 H Est GFR ( Amer) 17 L Est GFR (Non-Af Amer) 14 L Glucose 73 L Calcium 8.0 L 07/31/16 00:02 Nasophary (Mrsa Only) MRSA Surveillance Culture - Final NO MRSA RECOVERED Impressions: Chest X-Ray 07/30/16 15:24 IMPRESSION: LIMITED STUDY. SUSPECT LEFT PLEURAL EFFUSION WITH LEFT LOWER LOBE ATELECTASIS VERSUS INFILTRATE. Head CT 07/31/16 00:00 IMPRESSION: MILD CHRONIC CHANGES OF ATROPHY AND MICROVASCULAR ISCHEMIA. The previously described large old left MCA infarct appears stable. NO ACUTE PROCESS. Head MRI 07/31/16 00:00 IMPRESSION: ATROPHY AND CHRONIC MICRO-VASCULAR ISCHEMIC CHANGES. OLD INFARCT INVOLVING A LARGE PORTION OF THE LEFT MIDDLE CEREBRAL ARTERY TERRITORY. NO ACUTE FINDINGS. Assessment & Plan - Diagnosis (1) Septic shock due to urinary tract infection Is this a current diagnosis for this admission?: YesPlan: Patient is currently in the septic shock we hold the dialysis with the patient and the gloria-drip and transfer the patient in intensive care unit. We also start the patient on the broad-spectrum antibiotic. Patient urine cultures so some gram-negative rods which is most likely a source of infections. Patient's chest x-ray shows some atelectasis versus pneumonia which could be also source of the infections. Discussed with the brother but extensively regarding the patient's current conditions with the very critical but patients continues to be a full code. (2) Urinary tract infection Qualifiers: Urinary tract infection type: site unspecified Hematuria presence: without hematuria Qualified Code(s): N39.0 - Urinary tract infection, site not specified Is this a current diagnosis for this admission?: YesPlan: Continues the broad-spectrum antibiotic and until the culture and sensitivity back (3) Altered mental state Qualifiers: Altered mental status type: disorientation Qualified Code(s): R41.0 - Disorientation, unspecified Is this a current diagnosis for this admission?: YesPlan: Most likely due to the above conditions patient's MRI so far so negative for any acute stroke but it could be a possible patients may have a TIA symptoms discussed with the patient's and the family about all MRI report (4) Diabetes Qualifiers: Diabetes mellitus type: type 2 Diabetes mellitus complication status: with kidney complications Diabetes mellitus complication detail: with nephropathy Diabetes mellitus custodial insulin use: with termite treater use Qualified Code(s): E11.21 - Type 2 diabetes mellitus with diabetic nephropathy; Z79.4 - intermediate manager (current) use of insulin Is this a current diagnosis for this admission?: YesPlan: Continues a sliding scale with [facility] protocol (5) ESRD on dialysis Is this a current diagnosis for this admission?: YesPlan: Currently on hemodialysis we consulted nephrology for further evaluations (6) Pneumonia Qualifiers: Pneumonia type: due to unspecified organism Laterality: right Lung location: middle lobe of lung Qualified Code(s): J18.9 - Pneumonia, unspecified organism Is this a current diagnosis for this admission?: YesPlan: Patients have any hard to evaluate because of the chest x-ray report saying possible atelectasis versus pneumonia will continues the patient on the broad- spectrum antibiotic get the ABG and consult the pulmonary and discussed with the pulmonary and ICU to continues to monitor (7) Breast cancer Qualifiers: Breast location: unspecified site of breast Estrogen receptor status: unspecified Patient sex: female Laterality: unspecified laterality Qualified Code(s): C50.919 - Malignant neoplasm of unspecified site of unspecified female breast Is this a current diagnosis for this admission?: YesPlan: Patient is currently on no medications but other than that unable to take any more treatments - Time Time Spent with patient: 35 or more minutes Medications reviewed and adjusted accordingly: Yes Anticipated discharge: Other Within: Other - Inpatient Certification Medical Necessity: Need Close Monitoring Due to Risk of Patient Decompensation, Need for IV Antibiotics Post Hospital Care: D/C Electrician Assistant Documentation - Plan Summary Plan Summary: We will transfer the patient in ICU start the patient on the broad-spectrum antibiotic wait for the all culture and sensitivity. Discussed with the nephrology about the patient's current conditions and discussed the pulmonary about patient's current conditions. Will get the CT abdomen and pelvis to rule out any other etiology for the sepsis. Discussed with the patient patient's family about the current conditions and a critical and most likely a septic shock understand very well still continues to be a full code. Patient overall prognosis is very poor
--- NOTE | 2016-08-01 10:45 | PDOC CONSULTATION ---
Consultation Consult Date: 08/01/16 Consult reason:: Altered mental status in the setting of ESRD and hemodialysis. History of Present Illness Admission Date/PCP: 07/30/16 22:04 Venancio QUINTANILLA MD History of Present Illness: MEGHA HOPKINS is a 61 year old female, history of CVA, history of end-stage renal disease on maintenance hemodialysis, resident of the halfway at [facility], was transferred from the nursing of the emergency room because patient was not responding. Patient is currently in the ICU and minimally responsive. Therefore chart review was done and discussions were done with the treating nurse. Apparently the family said she normally communicates but she was not responding to verbal communication prior to her admission. She was seen in the emergency room, it was felt that she has UTI and that the altered mental status was from UTI. Patient has had CT and MRI of the brain yesterday which are reviewed. He did not show any acute changes but had a previous old MCA infarct. Also had a CT scan of the abdomen shows some amount of ascites and subcutaneous edema. This morning she was found to be hemodynamically unstable and she was transferred to the ICU. Past Medical History Cardiac Medical History: Reports: Hyperlipidemia, Hypertension-primary, Peripheral Vascular Disease Denies: Coronary Artery Disease, Myocardial Infarction Pulmonary Medical History: Denies: Asthma, Bronchitis, Chronic Obstructive Pulmonary Disease (COPD), Pneumonia Neurological Medical History: Reports: Ischemic CVA Denies: Seizures Endocrine Medical History: Reports: Diabetes Mellitus Type 2 - IDDM Renal/ Medical History: Reports: End Stage Renal Disease, Secondary Hyperparathyroidism Malignancy Medical History: Reports: Breast Cancer GI Medical History: Reports: Gastroesophageal Reflux Disease Musculoskeltal Medical History: Reports: Gout Denies: Arthritis Psychiatric Medical History: Reports: Other - Dementia. Vascular. Denies: Depression Hematology Medical History: Reports Anemia of Chronic Kidney Disease Past Surgical History Past Surgical History: Reports: Cholecystectomy, Hysterectomy, Mastectomy - right, Orthopedic Surgery - right toe amputation, Vascular Surgery - picc Social History Smoking Status: Never Smoker Frequency of Alcohol Use: None Hx Recreational Drug Use: No Hx Prescription Drug Abuse: No Family History Parental Family History Reviewed: No - Patient unable to contribute. From previous history there is no history of Children Family History Reviewed: No Sibling(s) Family History Reviewed.: No Medication/Allergy Home Medications: Allopurinol [Zyloprim 100 mg Tablet] 100 mg PO DAILY 04/21/15 Atorvastatin Calcium [Lipitor 40 mg Tablet] 40 mg PO DAILY 04/21/15 Cholecalciferol (Vitamin D3) [Vitamin D3] 400 units PO DAILY 04/21/15 Docusate Sodium [Colace 100 mg Capsule] 100 mg PO DAILY 04/21/15 Famotidine [Pepcid 20 mg Tablet] 20 mg PO DAILY 04/21/15 Ferrous Sulfate [Albafort] 325 mg PO DAILY 04/21/15 Nifedipine [Procardia Xl] 90 mg PO DAILY 04/21/15 Acetaminophen [Pain Relief] 650 mg PO Q4HP PRN 12/30/15 Anastrozole [Arimidex 1 mg Tablet] 1 mg PO DAILY 12/30/15 Ascorbic Acid [Vitamin C 500 mg Tablet] 500 mg PO DAILY 12/30/15 Isosorbide Mononitrate [Imdur 30 mg Tablet.er] 30 mg PO DAILY 12/30/15 Ondansetron HCl [Zofran 4 mg Tablet] 4 mg PO Q6H PRN 12/30/15 B Complex & C No.20/Folic Acid [Nephrocaps Softgel] 1 mg PO DAILY 07/20/16 Clonidine HCl [Catapres 0.2 mg Tablet] 0.2 mg PO Q8 07/20/16 Aspirin/Dipyridamole [Aggrenox 25 mg-200 mg Capsule] 1 tab PO BID 07/31/16 Bismuth Subsalicylate [Maalox] 15 ml PO Q4H PRN 07/31/16 Collagenase Clostridium Hist. [Santyl] 30 gm TD DAILYP PRN 07/31/16 Heparin Sodium,Porcine/Pf [Heparin Flush 10 Units/ml Syr] 3 ml IV ASDIR PRN Hydralazine HCl [Apresoline 10 mg Tablet] 10 tab PO Q4H PRN 07/31/16 Insulin Glargine,Hum.rec.anlog [Lantus Insulin 100 Unit/1 ml 10 ml] 12 units SUBCUT QPM 07/31/16 Insulin Regular, Human [Humulin R (Pyxis) Insulin 100 Unit/ml 3Ml] 0 unit SUBCUT .SLD SCALE 07/31/16 Ipratropium/Albuterol Sulfate [Duoneb 3 ml Ampul] 1 unit NEB Q6H PRN 07/31/16 Mirtazapine [Remeron] 7.5 mg PO QHS 07/31/16 Omeprazole 20 mg PO DAILY 07/31/16 Oxycodone HCl/Acetaminophen [Percocet 5-325 mg Tablet] 1 tab PO Q8H PRN Polyvinyl Alcohol [Liquid Tears] 1 drop OU QID 07/31/16 Allergies/Adverse Reactions: Penicillins Allergy (Unknown, Verified 08/21/15 08:56) Unknown reaction, THINKS IT WAS HIVES Review of Systems Review of Systems: Patient unable to contribute. Therefore chart review was done. Physical Exam Vital Signs: Temp Pulse Resp BP Pulse Ox 97.3 F 78 12 82/58 L 91 L 08/01/16 04:07 08/01/16 07:00 08/01/16 07:00 08/01/16 07:00 08/01/16 07:00 Intake & Output 07/31/16 08/01/16 08/02/16 06:59 06:59 06:59 Intake Total 0 35 Output Total 0 0 Balance 0 35 Weight 100.5 kg 102.2 kg General appearance: PRESENT: no acute distress, disheveled Exam: Patient is quite unresponsive but periodically opens her eyes but still not response to any oral commands. She is moving all 4 limbs. Eye exam: PRESENT: conjunctiva pink, conjunctiva pale, PERRLA Mouth exam: PRESENT: moist, neck supple Neck exam: ABSENT: lymphadenopathy, meningismus, tenderness, thyromegaly, tracheal deviation Respiratory exam: PRESENT: clear to auscultation jay, decreased breath sounds. ABSENT: crackles, rhonchi Cardiovascular exam: PRESENT: +S1, +S2, systolic murmur GI/Abdominal exam: PRESENT: normal bowel sounds, soft. ABSENT: distended, firm , guarding, organomegaly Extremities exam: ABSENT: pedal edema Neurological exam: PRESENT: altered - As mentioned earlier patient is quite lethargic and very minimally responsive to any commands. Skin exam: ABSENT: erythema, mottled, rash Results Laboratory Results: 08/01/16 08:20 08/01/16 07:02 08/01/16 08/01/16 08/01/16 07:02 07:02 08:20 WBC Cancelled 16.4 H RBC Cancelled 3.01 L Hgb Cancelled 10.5 L Hct Cancelled 32.8 L MCV Cancelled 109 H MCH Cancelled 34.8 H MCHC Cancelled 31.9 L RDW Cancelled 17.7 H Plt Count Cancelled 132 L Seg Neutrophils % Cancelled Not Reportable Lymphocytes % Cancelled Not Reportable Monocytes % Cancelled Not Reportable Eosinophils % Cancelled Not Reportable Basophils % Cancelled Not Reportable Absolute Neutrophils Cancelled Not Reportable Absolute Lymphocytes Cancelled Not Reportable Absolute Monocytes Cancelled Not Reportable Absolute Eosinophils Cancelled Not Reportable Absolute Basophils Cancelled Not Reportable Sodium 131.8 L Potassium 4.5 Chloride 100 Carbon Dioxide 24 Anion Gap 8 BUN 31 H Creatinine 3.32 H Est GFR ( Amer) 17 L Est GFR (Non-Af Amer) 14 L Glucose 73 L Calcium 8.0 L 07/31/16 00:02 Nasophary (Mrsa Only) MRSA Surveillance Culture - Final NO MRSA RECOVERED Impressions: Chest X-Ray 07/30/16 15:24 IMPRESSION: LIMITED STUDY. SUSPECT LEFT PLEURAL EFFUSION WITH LEFT LOWER LOBE ATELECTASIS VERSUS INFILTRATE. Head CT 07/31/16 00:00 IMPRESSION: MILD CHRONIC CHANGES OF ATROPHY AND MICROVASCULAR ISCHEMIA. The previously described large old left MCA infarct appears stable. NO ACUTE PROCESS. Head MRI 07/31/16 00:00 IMPRESSION: ATROPHY AND CHRONIC MICRO-VASCULAR ISCHEMIC CHANGES. OLD INFARCT INVOLVING A LARGE PORTION OF THE LEFT MIDDLE CEREBRAL ARTERY TERRITORY. NO ACUTE FINDINGS. Assessment & Plan - Diagnosis (1) Acute encephalopathy Is this a current diagnosis for this admission?: YesPlan: Most likely from UTI and sepsis. Patient is already on ertapenem and vancomycin has just been ordered by me adjusted to ESRD status. (2) End stage renal disease Plan: Patient has anasarca because of a combination of lack of previous hemodialysis and hypoalbuminemia. Plan for gentle dialysis in the setting of septic shock and see if he can extract some amount of fluid which is chronic but difficult given her hemodynamic instability. Discussed this with the treating nurse in the ICU Bonnie. Patient was seen and later during hemodialysis. After initiation of hemodialysis patient dropped blood pressure below 90 systolics. Discussed with the treating nurse Bonnie just initiated on Levophed to keep her systolic around 102 110 and see if he can extract some fluid. However given her overall status she is going to have a difficult time to extract fluid given her septic shock and might ultimately need to be in the center where they have CVVH. (3) Septic shock due to urinary tract infection Is this a current diagnosis for this admission?: YesPlan: She has been transferred to ICU for stabilization. Patient was seen later on and the initiation of hemodialysis dropped her blood pressure and she is being initiated on Levophed.Overall poor prognosis given her comorbidities. (4) Hypertension Qualifiers: Hypertension type: essential hypertension Qualified Code(s): I10 - Essential (primary) hypertension Is this a current diagnosis for this admission?: YesPlan: Currently hypotensive from septic shock. Monitor.
[2016-08-01 10:49] LABS: BAND NEUTROPHILS % (MANUAL) 2 % (3-5); BASOPHILS % (MANUAL) 0 % (0-2); EOSINOPHILS % (MANUAL) 0 % (0-6); LYMPHOCYTES % (MANUAL) 4 % (13-45); TOTAL CELLS COUNTED 100
[2016-08-01] MEDS: ASCORBIC ACID 500 MG TABLET PO SCH (10:49)
[2016-08-01] MEDS: ANASTROZOLE 1 MG TABLET PO SCH (10:49)
[2016-08-01] MEDS: CHOLECALCIFEROL (D3) 400 UNIT TABLET PO SCH (10:49)
[2016-08-01] MEDS: ASPIRIN/DIPYRIDAMOLE 25-200 MG 1 CAP.SR CPMP.12HR PO SCH ×2 (10:49→17:39)
[2016-08-01] MEDS: FOLIC ACID/VITAMIN B COMP W-C CAPSULE PO SCH (10:49)
[2016-08-01] MEDS: ALLOPURINOL 100 MG TABLET PO SCH (10:49)
[2016-08-01] MEDS: FERROUS SULFATE 325 MG TABLET PO SCH (10:49)
[2016-08-01] MEDS: DOCUSATE SODIUM 100 MG CAPSULE PO SCH (10:49)
[2016-08-01] MEDS: ISOSORBIDE MONONITRATE 30 MG TAB.ER.24H PO SCH (10:49)
[2016-08-01] MEDS: FAMOTIDINE INJ/PF 20 MG/2 ML SDV IV SCH (10:50)
[2016-08-01 10:51] LABS: TOXIC GRANULATION SLIGHT; TOXIC VACUOLATION PRESENT
[2016-08-01] MEDS: ERTAPENEM SODIUM 0.5 GM in NORMAL SALINE 50 ML IV SCH (10:56)
[2016-08-01] MEDS: POLYVINYL ALCOHOL 1.4% OPH SOLN 15 ML OU SCH ×4 (10:56→22:33)
[2016-08-01 10:58] LABS: ANISOCYTOSIS 2+
[2016-08-01 10:59] LABS: POLYCHROMASIA 1+
[2016-08-01 11:01] LABS: STOMATOCYTES 1+
[2016-08-01 11:22] LABS: OVALOCYTES SLIGHT; POIKILOCYTOSIS SLIGHT
[2016-08-01] MEDS ORDERED: VANCOMYCIN HCL 1,500 MG in DEXTROSE 5%-WATER 250 ML IV ONE (12:00)
[2016-08-01 12:02] LABS: ARTERIAL BLOOD BASE EXCESS -2.9 mmol/L; ARTERIAL BLOOD O2 SATURATION 98.2 % (94-98)
[2016-08-01 12:53] LABS: PATH REVIEW PATHOLOGIST REVIEWED
[2016-08-01] MEDS ORDERED: NOREPINEPHRINE BITARTRATE INJ/PF 4 MG/4 ML SDV IV ONE ×2 (14:43→19:31)
[2016-08-01] MEDS: DEXTROSE 5%-WATER 250 ML with NOREPINEPHRINE BITARTRATE 4 MG IV PRN ×4 (14:51→19:31)
[2016-08-01] MEDS ORDERED: HEPARIN SOD (PORCINE) 1,000 UNIT/ML 10 ML VIAL IV PRN (16:15)
[2016-08-01] MEDS: INSULIN GLARGINE,HUM.REC.ANLOG 1,000 UNIT/10 ML UNIT SUBCUT SCH (17:39)
[2016-08-01] MEDS ORDERED: NORMAL SALINE INJ/PF 0.9% 10 ML SDV IV PRN (18:56)
--- NOTE | 2016-08-01 19:14 | OPERATIVE REPORT E ---
Operative Report NAME: MEGHA HOPKINS : 1955 AGE: 61Y DATE OF SURGERY: 08/01/2016 ROOM: 606 PREOPERATIVE DIAGNOSIS: Sepsis. POSTOPERATIVE DIAGNOSIS: Sepsis. OPERATION: Focused ultrasound of the right groin with ultrasound-directed insertion of triple lumen central venous access catheter. SURGEON: LIS COREY M.D. ANESTHESIA: 1% lidocaine without epinephrine COMPLICATIONS: None. FINDINGS: See below. ESTIMATED BLOOD LOSS: Scant. DRAINS: None. TISSUE REMOVED OR ALTERED: None. PROCEDURE: Informed consent was provided by the patient's brother. The right groin was exposed, cleaned with Hibiclens scrub, washed, prepped and draped in sterile fashion. Surgical and planned surgical timeout were conducted. Ultrasound was brought onto the field with a sterile transducer cover. The right common femoral vein was felt to be suitable for cannulation. Skin was anesthetized with 1% lidocaine with epinephrine. Using the Seldinger technique under real time ultrasound guidance, triple lumen central venous access catheter was threaded into position. There was excellent blood flow throughout the lumens. Catheter was flushed with saline. Biopatch applied. 2-0 silk suture was used to secure the area and sterile dressing was applied. The patient tolerated the procedure well. DICTATING PHYSICIAN: LIS COREY M.D. [id number] PHY#: [id number] ID: [id number] JOB#: [id number] ACCT: [id number] cc:LIS COREY M.D. >
[2016-08-01] MEDS: DEXTROSE 5%-WATER 250 ML with PHENYLEPHRINE HCL 40 MG IV PRN ×2 (20:02)
[2016-08-01 21:05] LABS: ARTERIAL BLOOD BASE EXCESS 3.2 mmol/L; ARTERIAL BLOOD O2 SATURATION 98.9 % (94-98)
--- NOTE | 2016-08-01 21:17 | PDOC CONSULTATION ---
Consultation Consult Date: 08/01/16 Attending physician:: DEMETRIS BLACKMAN Consult reason:: sepsis History of Present Illness Admission Date/PCP: 07/30/16 22:04 Venancio QUINTANILLA MD History of Present Illness: MEGHA HOPKINS is a 61 year old female, history of CVA, history of end-stage renal disease on maintenance hemodialysis, resident of the senior living at [facility],She was foud to be non responsive and [facility] Past Medical History Cardiac Medical History: Reports: Hyperlipidema, Hypertension, Peripheral Vascular Disease Denies: Coronary Artery Disease, Myocardial Infarction Pulmonary Medical History: Denies: Asthma, Bronchitis, Chronic Obstructive Pulmonary Disease (COPD), Pneumonia Neurological Medical History: Reports: Ischemic CVA Denies: Seizures Endocrine Medical History: Reports: Diabetes Mellitus Type 2 - IDDM Renal/ Medical History: Reports: End Stage Renal Disease Malignancy Medical History: Reports: Breast Cancer GI Medical History: Reports: Gastroesophageal Reflux Disease Musculoskeltal Medical History: Reports: Gout Denies: Arthritis Psychiatric Medical History: Reports: Other - Dementia. Vascular. Denies: Depression Hematology: Reports: Anemia Past Surgical History Past Surgical History: Reports: Cholecystectomy, Hysterectomy, Mastectomy - right, Orthopedic Surgery - right toe amputation, Vascular Surgery - picc Social History Information Source: [facility] Records Lives with: [facility] Smoking Status: Never Smoker Frequency of Alcohol Use: None Hx Recreational Drug Use: No Hx Prescription Drug Abuse: No Family History Family History: Reviewed & Not Pertinent Parental Family History Reviewed: No Children Family History Reviewed: No Sibling(s) Family History Reviewed.: No Medication/Allergy Home Medications: Allopurinol [Zyloprim 100 mg Tablet] 100 mg PO DAILY 04/21/15 Atorvastatin Calcium [Lipitor 40 mg Tablet] 40 mg PO DAILY 04/21/15 Cholecalciferol (Vitamin D3) [Vitamin D3] 400 units PO DAILY 04/21/15 Docusate Sodium [Colace 100 mg Capsule] 100 mg PO DAILY 04/21/15 Famotidine [Pepcid 20 mg Tablet] 20 mg PO DAILY 04/21/15 Ferrous Sulfate [Albafort] 325 mg PO DAILY 04/21/15 Nifedipine [Procardia Xl] 90 mg PO DAILY 04/21/15 Acetaminophen [Pain Relief] 650 mg PO Q4HP PRN 12/30/15 Anastrozole [Arimidex 1 mg Tablet] 1 mg PO DAILY 12/30/15 Ascorbic Acid [Vitamin C 500 mg Tablet] 500 mg PO DAILY 12/30/15 Isosorbide Mononitrate [Imdur 30 mg Tablet.er] 30 mg PO DAILY 12/30/15 Ondansetron HCl [Zofran 4 mg Tablet] 4 mg PO Q6H PRN 12/30/15 B Complex & C No.20/Folic Acid [Nephrocaps Softgel] 1 mg PO DAILY 07/20/16 Clonidine HCl [Catapres 0.2 mg Tablet] 0.2 mg PO Q8 07/20/16 Aspirin/Dipyridamole [Aggrenox 25 mg-200 mg Capsule] 1 tab PO BID 07/31/16 Bismuth Subsalicylate [Maalox] 15 ml PO Q4H PRN 07/31/16 Collagenase Clostridium Hist. [Santyl] 30 gm TD DAILYP PRN 07/31/16 Heparin Sodium,Porcine/Pf [Heparin Flush 10 Units/ml Syr] 3 ml IV ASDIR PRN Hydralazine HCl [Apresoline 10 mg Tablet] 10 tab PO Q4H PRN 07/31/16 Insulin Glargine,Hum.rec.anlog [Lantus Insulin 100 Unit/1 ml 10 ml] 12 units SUBCUT QPM 07/31/16 Insulin Regular, Human [Humulin R (Pyxis) Insulin 100 Unit/ml 3Ml] 0 unit SUBCUT .SLD SCALE 07/31/16 Ipratropium/Albuterol Sulfate [Duoneb 3 ml Ampul] 1 unit NEB Q6H PRN 07/31/16 Mirtazapine [Remeron] 7.5 mg PO QHS 07/31/16 Omeprazole 20 mg PO DAILY 07/31/16 Oxycodone HCl/Acetaminophen [Percocet 5-325 mg Tablet] 1 tab PO Q8H PRN Polyvinyl Alcohol [Liquid Tears] 1 drop OU QID 07/31/16 Allergies/Adverse Reactions: Penicillins Allergy (Unknown, Verified 08/21/15 08:56) Unknown reaction, THINKS IT WAS HIVES Review of Systems ROS unobtainable: Due to mental status All systems: reviewed and no additional remarkable complaints except as stated Physical Exam Vital Signs: Temp Pulse Resp BP Pulse Ox 97.3 F 78 12 82/58 L 91 L 08/01/16 04:07 08/01/16 07:00 08/01/16 07:00 08/01/16 07:00 08/01/16 07:00 Intake & Output 07/31/16 08/01/16 08/02/16 06:59 06:59 06:59 Intake Total 0 35 Output Total 0 0 Balance 0 35 Weight 100.5 kg 102.2 kg General appearance: PRESENT: no acute distress, disheveled, obese Head exam: PRESENT: atraumatic, normocephalic Eye exam: PRESENT: conjunctiva pale Mouth exam: PRESENT: dry mucosa, neck supple Teeth exam: PRESENT: poor dentation Neck exam: ABSENT: carotid bruit, JVD, lymphadenopathy, thyromegaly Skin exam: PRESENT: dry, warm, other - eccymosi various stage throughout body Results Laboratory Results: 08/01/16 08:20 08/01/16 07:02 08/01/16 08/01/16 08/01/16 07:02 07:02 08:20 WBC Cancelled 16.4 H RBC Cancelled 3.01 L Hgb Cancelled 10.5 L Hct Cancelled 32.8 L MCV Cancelled 109 H MCH Cancelled 34.8 H MCHC Cancelled 31.9 L RDW Cancelled 17.7 H Plt Count Cancelled 132 L Seg Neutrophils % Cancelled Not Reportable Lymphocytes % Cancelled Not Reportable Monocytes % Cancelled Not Reportable Eosinophils % Cancelled Not Reportable Basophils % Cancelled Not Reportable Absolute Neutrophils Cancelled Not Reportable Absolute Lymphocytes Cancelled Not Reportable Absolute Monocytes Cancelled Not Reportable Absolute Eosinophils Cancelled Not Reportable Absolute Basophils Cancelled Not Reportable Sodium 131.8 L Potassium 4.5 Chloride 100 Carbon Dioxide 24 Anion Gap 8 BUN 31 H Creatinine 3.32 H Est GFR ( Amer) 17 L Est GFR (Non-Af Amer) 14 L Glucose 73 L Calcium 8.0 L 07/31/16 00:02 Nasophary (Mrsa Only) MRSA Surveillance Culture - Final NO MRSA RECOVERED Impressions: Chest X-Ray 07/30/16 15:24 IMPRESSION: LIMITED STUDY. SUSPECT LEFT PLEURAL EFFUSION WITH LEFT LOWER LOBE ATELECTASIS VERSUS INFILTRATE. Head CT 07/31/16 00:00 IMPRESSION: MILD CHRONIC CHANGES OF ATROPHY AND MICROVASCULAR ISCHEMIA. The previously described large old left MCA infarct appears stable. NO ACUTE PROCESS. Head MRI 07/31/16 00:00 IMPRESSION: ATROPHY AND CHRONIC MICRO-VASCULAR ISCHEMIC CHANGES. OLD INFARCT INVOLVING A LARGE PORTION OF THE LEFT MIDDLE CEREBRAL ARTERY TERRITORY. NO ACUTE FINDINGS. Abdomen/Pelvis CT 08/01/16 00:00 IMPRESSION: 1. Pleural effusions, subcutaneous edema, and free fluid in the abdomen and pelvis. 2. Marked atrophy of the kidneys. Renal vascular calcifications. Assessment & Plan - Diagnosis (2) Urinary tract infection Qualifiers: Urinary tract infection type: site unspecified Hematuria presence: without hematuria Qualified Code(s): N39.0 - Urinary tract infection, site not specified Is this a current diagnosis for this admission?: Yes (3) ESRD on dialysis Is this a current diagnosis for this admission?: Yes - Time Critical Time spent with patient: 35 or more minutes - 55 min
[2016-08-01] MEDS ORDERED: PHARMACY COMMUNICATION ORDER MC NR (21:45)
[2016-08-01] MEDS: ATORVASTATIN CALCIUM 40 MG TABLET PO SCH (22:32)
[2016-08-01] MEDS: MIRTAZAPINE 15 MG TABLET PO SCH (22:35)
[2016-08-02] MEDS: DEXTROSE 5%-WATER 250 ML with NOREPINEPHRINE BITARTRATE 4 MG IV PRN ×8 (00:45→22:39)
[2016-08-02] MEDS ORDERED: ACETAMINOPHEN 325 MG TABLET NG PRN (02:54)
[2016-08-02] MEDS ORDERED: MAG HYDROX/AL HYDROX/SIMETH SUSP 30 ML UDCUP NG PRN (03:06)
[2016-08-02] MEDS ORDERED: ONDANSETRON 4 MG TAB.RAPDIS NG PRN (05:40)
[2016-08-02] MEDS ORDERED: HYDRALAZINE HCL 10 MG TABLET NG PRN (05:41)
[2016-08-02] MEDS: HEPARIN SOD (PORCINE) 5,000 UNIT/ML 1 ML SYRINGE SUBCUT SCH ×3 (05:42→22:31)
[2016-08-02] MEDS: CLONIDINE HCL 0.2 MG TABLET NG SCH ×3 (05:45→22:38)
[2016-08-02] MEDS ORDERED: PHENYLEPHRINE HCL INJ/PF 10 MG/1 ML SDV ONE (06:11)
[2016-08-02] MEDS: DEXTROSE 5%-WATER 250 ML with PHENYLEPHRINE HCL 40 MG IV PRN ×4 (06:17→11:46)
[2016-08-02 06:21] LABS: HEMATOCRIT 32.3 % (36.0-47.0); HEMOGLOBIN 10.1 g/dL (12.0-15.5); MEAN CORPUSCULAR HEMOGLOBIN 34.4 pg (27.0-33.4); MEAN CORPUSCULAR HGB CONC 31.4 g/dL (32.0-36.0); MEAN CORPUSCULAR VOLUME 110 fl (80-97); RED BLOOD COUNT 2.95 10^6/uL (3.72-5.28); RED CELL DISTRIBUTION WIDTH 17.4 % (11.5-14.0); WHITE BLOOD COUNT 18.6 10^3/uL (4.0-10.5)
[2016-08-02 06:25] LABS: ALANINE AMINOTRANSFERASE 103 U/L (9-52); ALBUMIN 1.5 g/dL (3.5-5.0); ALKALINE PHOSPHATASE 1194 U/L (38-126); ANION GAP 7 (5-19); ASPARTATE AMINO TRANSFERASE 332 U/L (14-36); BLOOD UREA NITROGEN 19 mg/dL (7-20); CALCIUM 7.5 mg/dL (8.4-10.2); CARBON DIOXIDE 26 mmol/L (22-30); CHLORIDE 98 mmol/L (98-107); CREATININE RESULT 2.32 mg/dL (0.52-1.25); GLUCOSE 116 mg/dL (75-110); SODIUM 130.8 mmol/L (137-145); TOTAL PROTEIN 3.8 g/dL (6.3-8.2)
[2016-08-02 06:36] LABS: POTASSIUM 3.4 mmol/L (3.6-5.0)
[2016-08-02 06:50] LABS: BASOPHILS % (MANUAL) 0 % (0-2); EOSINOPHILS % (MANUAL) 0 % (0-6); LYMPHOCYTES % (MANUAL) 2 % (13-45); TOTAL CELLS COUNTED 100
[2016-08-02 06:53] LABS: ANISOCYTOSIS 1+; OVALOCYTES SLIGHT; POIKILOCYTOSIS SLIGHT; POLYCHROMASIA SLIGHT; TARGET CELLS SLIGHT; TOXIC GRANULATION SLIGHT
[2016-08-02 07:10] LABS: PROTHROMBIN TIME 15.8 SEC (11.4-15.4)
[2016-08-02] MEDS ORDERED: LACTULOSE SYRUP 20 GM/30 ML UDCUP PO ONE (07:30)
[2016-08-02] MEDS: FERROUS SULFATE 325 MG TABLET PO SCH (09:06)
[2016-08-02] MEDS: ASPIRIN/DIPYRIDAMOLE 25-200 MG 1 CAP.SR CPMP.12HR PO SCH (09:06)
[2016-08-02] MEDS ORDERED: ANASTROZOLE 1 MG TABLET NG SCH (10:00)
[2016-08-02] MEDS ORDERED: CHOLECALCIFEROL (D3) 400 UNIT TABLET NG SCH (10:00)
[2016-08-02] MEDS ORDERED: ALLOPURINOL 100 MG TABLET NG SCH (10:00)
[2016-08-02] MEDS ORDERED: ASCORBIC ACID 500 MG TABLET NG SCH (10:00)
[2016-08-02] MEDS ORDERED: FOLIC ACID/VITAMIN B COMP W-C CAPSULE NG SCH (10:00)
[2016-08-02] MEDS ORDERED: FERROUS SULFATE LIQUID 300 MG/5 ML UDC NG SCH (10:00)
[2016-08-02] MEDS ORDERED: DOCUSATE SODIUM 100 MG/10 ML UDC NG SCH (10:00)
[2016-08-02] MEDS: IMIPENEM/CILASTATIN SODIUM 500 MG in NORMAL SALINE 100 ML IV SCH ×2 (10:47→22:31)
[2016-08-02] MEDS: FAMOTIDINE INJ/PF 20 MG/2 ML SDV IV SCH (10:47)
--- NOTE | 2016-08-02 10:50 | PDOC PROGRESS REPORT ---
Subjective Progress Note for:: 08/02/16 Subjective:: awake unresponsive unchanged Physical Exam Vital Signs: Temp Pulse Resp BP Pulse Ox 99.0 F 85 17 155/33 H 100 08/02/16 08:00 08/02/16 08:00 08/02/16 08:00 08/02/16 08:00 08/02/16 08:00 Intake & Output 08/01/16 08/02/16 08/03/16 06:59 06:59 06:59 Intake Total 35 1334 Output Total 0 1078 0 Balance 35 256 0 Weight 102.2 kg 100.7 kg General appearance: PRESENT: no acute distress, morbidly obese, well-developed Head exam: PRESENT: atraumatic, normocephalic Eye exam: PRESENT: conjunctiva pale Mouth exam: PRESENT: dry mucosa, neck supple Neck exam: ABSENT: carotid bruit, JVD, lymphadenopathy, thyromegaly Respiratory exam: PRESENT: decreased breath sounds, prolonged expiratory phas, rhonchi, symmetrical, unlabored, wheezes Cardiovascular exam: PRESENT: RRR, +S1 Pulses: PRESENT: normal radial pulses GI/Abdominal exam: PRESENT: normal bowel sounds, soft. ABSENT: distended, guarding, mass, organolmegaly, rebound, tenderness Rectal exam: PRESENT: deferred Gentrourinary exam: PRESENT: indwelling catheter Musculoskeletal exam: PRESENT: normal inspection Skin exam: PRESENT: dry - skin breakdon r heel and sacrum Results Laboratory Results: 08/02/16 05:50 08/02/16 05:50 08/01/16 08/01/16 08/01/16 08:20 11:30 15:45 WBC 16.4 H RBC 3.01 L Hgb 10.5 L Hct 32.8 L MCV 109 H MCH 34.8 H MCHC 31.9 L RDW 17.7 H Plt Count 132 L Seg Neutrophils % Not Reportable Lymphocytes % Not Reportable Monocytes % Not Reportable Eosinophils % Not Reportable Basophils % Not Reportable Absolute Neutrophils Not Reportable Absolute Lymphocytes Not Reportable Absolute Monocytes Not Reportable Absolute Eosinophils Not Reportable Absolute Basophils Not Reportable Carbonic Acid 0.92 L HCO3/H2CO3 Ratio 22:1 ABG pH 7.44 ABG pCO2 30.7 L ABG pO2 107.8 H ABG HCO3 20.4 ABG O2 Saturation 98.2 H ABG Base Excess -2.9 FiO2 2L Sodium Potassium Chloride Carbon Dioxide Anion Gap BUN Creatinine Est GFR ( Amer) Est GFR (Non-Af Amer) Glucose Lactic Acid 0.8 Calcium Total Bilirubin AST ALT Alkaline Phosphatase Ammonia Total Protein Albumin 08/01/16 08/02/16 08/02/16 20:55 05:50 05:50 WBC RBC Hgb Hct MCV MCH MCHC RDW Plt Count Seg Neutrophils % Lymphocytes % Monocytes % Eosinophils % Basophils % Absolute Neutrophils Absolute Lymphocytes Absolute Monocytes Absolute Eosinophils Absolute Basophils Carbonic Acid 1.07 HCO3/H2CO3 Ratio 24:1 ABG pH 7.49 H ABG pCO2 35.5 ABG pO2 136.1 H ABG HCO3 26.4 H ABG O2 Saturation 98.9 H ABG Base Excess 3.2 FiO2 2L Sodium 130.8 L Potassium 3.4 L D Chloride 98 Carbon Dioxide 26 Anion Gap 7 BUN 19 Creatinine 2.32 H Est GFR ( Amer) 26 L Est GFR (Non-Af Amer) 21 L Glucose 116 H Lactic Acid Calcium 7.5 L Total Bilirubin 2.0 H AST 332 H ALT 103 H Alkaline Phosphatase 1194 H Ammonia 119.4 H Total Protein 3.8 L Albumin 1.5 L 08/02/16 05:50 WBC 18.6 H RBC 2.95 L Hgb 10.1 L Hct 32.3 L MCV 110 H MCH 34.4 H MCHC 31.4 L RDW 17.4 H Plt Count 159 Seg Neutrophils % Not Reportable Lymphocytes % Not Reportable Monocytes % Not Reportable Eosinophils % Not Reportable Basophils % Not Reportable Absolute Neutrophils Not Reportable Absolute Lymphocytes Not Reportable Absolute Monocytes Not Reportable Absolute Eosinophils Not Reportable Absolute Basophils Not Reportable Carbonic Acid HCO3/H2CO3 Ratio ABG pH ABG pCO2 ABG pO2 ABG HCO3 ABG O2 Saturation ABG Base Excess FiO2 Sodium Potassium Chloride Carbon Dioxide Anion Gap BUN Creatinine Est GFR ( Amer) Est GFR (Non-Af Amer) Glucose Lactic Acid Calcium Total Bilirubin AST ALT Alkaline Phosphatase Ammonia Total Protein Albumin 07/31/16 00:02 Nasophary (Mrsa Only) MRSA Surveillance Culture - Final NO MRSA RECOVERED Impressions: Chest X-Ray 07/30/16 15:24 IMPRESSION: LIMITED STUDY. SUSPECT LEFT PLEURAL EFFUSION WITH LEFT LOWER LOBE ATELECTASIS VERSUS INFILTRATE. Head CT 07/31/16 00:00 IMPRESSION: MILD CHRONIC CHANGES OF ATROPHY AND MICROVASCULAR ISCHEMIA. The previously described large old left MCA infarct appears stable. NO ACUTE PROCESS. Head MRI 07/31/16 00:00 IMPRESSION: ATROPHY AND CHRONIC MICRO-VASCULAR ISCHEMIC CHANGES. OLD INFARCT INVOLVING A LARGE PORTION OF THE LEFT MIDDLE CEREBRAL ARTERY TERRITORY. NO ACUTE FINDINGS. Abdomen/Pelvis CT 08/01/16 00:00 IMPRESSION: 1. Pleural effusions, subcutaneous edema, and free fluid in the abdomen and pelvis. 2. Marked atrophy of the kidneys. Renal vascular calcifications. KUB X-Ray 08/01/16 21:40 IMPRESSION: NO RADIOGRAPHIC EVIDENCE FOR ACUTE ABDOMINAL DISEASE. Assessment & Plan - Diagnosis (1) Acute encephalopathy Is this a current diagnosis for this admission?: YesPlan: unchanged (2) Urinary tract infection Qualifiers: Urinary tract infection type: site unspecified Hematuria presence: without hematuria Qualified Code(s): N39.0 - Urinary tract infection, site not specified Is this a current diagnosis for this admission?: Yes (3) ESRD on dialysis Is this a current diagnosis for this admission?: Yes (4) Septic shock due to urinary tract infection Is this a current diagnosis for this admission?: Yes - Time Critical Time spent with patient: 35 or more minutes - Plan Summary Plan Summary: episode of tachypnea(guppy breathing) stable on bipap
[2016-08-02] MEDS: POLYVINYL ALCOHOL 1.4% OPH SOLN 15 ML OU SCH ×4 (10:54→22:35)
[2016-08-02] MEDS ORDERED: IMIPENEM/CILASTATIN SODIUM 500 MG in NORMAL SALINE 100 ML IV SCH (14:00)
[2016-08-02] MEDS: LACTULOSE SYRUP 20 GM/30 ML UDCUP NG SCH ×2 (14:46→22:31)
[2016-08-02] MEDS: INSULIN GLARGINE,HUM.REC.ANLOG 300 UNIT/3 ML INSULN.PEN SUBCUT SCH (17:23)
--- NOTE | 2016-08-02 18:53 | PDOC PROGRESS REPORT ---
Subjective Subjective:: This is a 61-year-old female with multiple comorbidity came to the emergency department for the altered mental status and initial work suggest the most likely a sepsis. Patient is not responding currently. Patient's blood pressure is still in the 70. Patient's MRI of the head did not show any acute infarctions.Patient's urine culture shows gram-negative rods and the patient also have a multiple other comorbidity and discussed with the brother on the bedside and patient still in a full code and patient at this point transfer to the intensive care unit for further evaluation. Patient is currently on the dialysis room but the blood pressure was low and discussed with the nephrology at this point unable to do the dialysis will put the patient on the pressure in the later on the evaluate again for the dialysis. Physical Exam Vital Signs: Temp Pulse Resp BP Pulse Ox 97.7 F 86 27 H 151/44 H 98 08/02/16 16:00 08/02/16 16:19 08/02/16 16:19 08/02/16 16:00 08/02/16 16:19 Intake & Output 08/01/16 08/02/16 08/03/16 06:59 06:59 06:59 Intake Total 35 1334 Output Total 0 1078 5 Balance 35 256 -5 Weight 102.2 kg 100.7 kg General appearance: PRESENT: no acute distress, other Eye exam: PRESENT: PERRLA Neck exam: ABSENT: JVD Respiratory exam: PRESENT: clear to auscultation jay Cardiovascular exam: PRESENT: +S1, +S2 GI/Abdominal exam: PRESENT: normal bowel sounds, soft Extremities exam: PRESENT: joint swelling Neurological exam: PRESENT: altered Results Laboratory Results: 08/02/16 05:50 08/02/16 05:50 08/01/16 08/02/16 08/02/16 20:55 05:50 05:50 WBC RBC Hgb Hct MCV MCH MCHC RDW Plt Count Seg Neutrophils % Lymphocytes % Monocytes % Eosinophils % Basophils % Absolute Neutrophils Absolute Lymphocytes Absolute Monocytes Absolute Eosinophils Absolute Basophils Carbonic Acid 1.07 HCO3/H2CO3 Ratio 24:1 ABG pH 7.49 H ABG pCO2 35.5 ABG pO2 136.1 H ABG HCO3 26.4 H ABG O2 Saturation 98.9 H ABG Base Excess 3.2 FiO2 2L Sodium 130.8 L Potassium 3.4 L D Chloride 98 Carbon Dioxide 26 Anion Gap 7 BUN 19 Creatinine 2.32 H Est GFR ( Amer) 26 L Est GFR (Non-Af Amer) 21 L Glucose 116 H Calcium 7.5 L Total Bilirubin 2.0 H AST 332 H ALT 103 H Alkaline Phosphatase 1194 H Ammonia 119.4 H Total Protein 3.8 L Albumin 1.5 L 08/02/16 05:50 WBC 18.6 H RBC 2.95 L Hgb 10.1 L Hct 32.3 L MCV 110 H MCH 34.4 H MCHC 31.4 L RDW 17.4 H Plt Count 159 Seg Neutrophils % Not Reportable Lymphocytes % Not Reportable Monocytes % Not Reportable Eosinophils % Not Reportable Basophils % Not Reportable Absolute Neutrophils Not Reportable Absolute Lymphocytes Not Reportable Absolute Monocytes Not Reportable Absolute Eosinophils Not Reportable Absolute Basophils Not Reportable Carbonic Acid HCO3/H2CO3 Ratio ABG pH ABG pCO2 ABG pO2 ABG HCO3 ABG O2 Saturation ABG Base Excess FiO2 Sodium Potassium Chloride Carbon Dioxide Anion Gap BUN Creatinine Est GFR ( Amer) Est GFR (Non-Af Amer) Glucose Calcium Total Bilirubin AST ALT Alkaline Phosphatase Ammonia Total Protein Albumin Impressions: Chest X-Ray 07/30/16 15:24 IMPRESSION: LIMITED STUDY. SUSPECT LEFT PLEURAL EFFUSION WITH LEFT LOWER LOBE ATELECTASIS VERSUS INFILTRATE. Head MRI 07/31/16 00:00 IMPRESSION: ATROPHY AND CHRONIC MICRO-VASCULAR ISCHEMIC CHANGES. OLD INFARCT INVOLVING A LARGE PORTION OF THE LEFT MIDDLE CEREBRAL ARTERY TERRITORY. NO ACUTE FINDINGS. Abdomen/Pelvis CT 08/01/16 00:00 IMPRESSION: 1. Pleural effusions, subcutaneous edema, and free fluid in the abdomen and pelvis. 2. Marked atrophy of the kidneys. Renal vascular calcifications. KUB X-Ray 08/01/16 21:40 IMPRESSION: NO RADIOGRAPHIC EVIDENCE FOR ACUTE ABDOMINAL DISEASE. Head CT 08/02/16 08:00 IMPRESSION: Motion artifact. Stable encephalomalacia left hemisphere from old infarct. No gross acute changes Assessment & Plan - Diagnosis (1) Septic shock due to urinary tract infection Is this a current diagnosis for this admission?: YesPlan: Patient is currently in the septic shock we hold the dialysis with the patient and the gloria-drip and transfer the patient in intensive care unit. We also start the patient on the broad-spectrum antibiotic. Patient urine cultures so some gram-negative rods which is most likely a source of infections. Patient's chest x-ray shows some atelectasis versus pneumonia which could be also source of the infections. Discussed with the brother but extensively regarding the patient's current conditions with the very critical but patients continues to be a full code. (2) Urinary tract infection Qualifiers: Urinary tract infection type: site unspecified Hematuria presence: without hematuria Qualified Code(s): N39.0 - Urinary tract infection, site not specified Is this a current diagnosis for this admission?: YesPlan: Continues the broad-spectrum antibiotic and until the culture and sensitivity back (3) Altered mental state Qualifiers: Altered mental status type: disorientation Qualified Code(s): R41.0 - Disorientation, unspecified Is this a current diagnosis for this admission?: YesPlan: Most likely due to the above conditions patient's MRI so far so negative for any acute stroke but it could be a possible patients may have a TIA symptoms discussed with the patient's and the family about all MRI report (4) Diabetes Qualifiers: Diabetes mellitus type: type 2 Diabetes mellitus complication status: with kidney complications Diabetes mellitus complication detail: with nephropathy Diabetes mellitus fci insulin use: with long term care phlebotomist use Qualified Code(s): E11.21 - Type 2 diabetes mellitus with diabetic nephropathy; Z79.4 - roasterman (current) use of insulin Is this a current diagnosis for this admission?: YesPlan: Continues a sliding scale with [facility] protocol (5) ESRD on dialysis Is this a current diagnosis for this admission?: YesPlan: Currently on hemodialysis we consulted nephrology for further evaluations (6) Pneumonia Qualifiers: Pneumonia type: due to unspecified organism Laterality: right Lung location: middle lobe of lung Qualified Code(s): J18.9 - Pneumonia, unspecified organism Is this a current diagnosis for this admission?: YesPlan: Patients have any hard to evaluate because of the chest x-ray report saying possible atelectasis versus pneumonia will continues the patient on the broad- spectrum antibiotic get the ABG and consult the pulmonary and discussed with the pulmonary and ICU to continues to monitor (7) Breast cancer Qualifiers: Breast location: unspecified site of breast Estrogen receptor status: unspecified Patient sex: female Laterality: unspecified laterality Qualified Code(s): C50.919 - Malignant neoplasm of unspecified site of unspecified female breast Is this a current diagnosis for this admission?: Yes (8) Abnormal LFTs Is this a current diagnosis for this admission?: YesPlan: Most likely septic shock - Time Time Spent with patient: 15-24 minutes Medications reviewed and adjusted accordingly: Yes Anticipated discharge: Other Within: Other - Inpatient Certification Medical Necessity: Need Close Monitoring Due to Risk of Patient Decompensation Post Hospital Care: D/C Regulatory Affairs Coordinator Documentation - Plan Summary Plan Summary: Discussed with the patient's brother about patient's current conditions with the septic shock and multiorgan failures with the poor prognosis
[2016-08-02] MEDS ORDERED: MIRTAZAPINE 15 MG TABLET NG SCH (22:00)
[2016-08-02] MEDS ORDERED: ATORVASTATIN CALCIUM 40 MG TABLET NG SCH (22:00)
[2016-08-03] MEDS: DEXTROSE 5%-WATER 250 ML with NOREPINEPHRINE BITARTRATE 4 MG IV PRN ×2 (01:27)
[2016-08-03] MEDS: DEXTROSE 5%-WATER 250 ML with PHENYLEPHRINE HCL 40 MG IV PRN ×2 (04:11)
[2016-08-03] MEDS ORDERED: ALBUMIN HUMAN 100 ML IV ONE (08:41)
[2016-08-03] MEDS ORDERED: METRONIDAZOLE 500 MG/NS RTU 100 ML IV ONE (09:57)
[2016-08-03] MEDS ORDERED: HEPARIN SOD (PORCINE) 1,000 UNIT/ML 10 ML VIAL ONE (11:21)
[2016-08-03] MEDS ORDERED: MORPHINE SULFATE 10 MG/ML INJ ONE ×4 (13:25→20:56)
[2016-08-03] MEDS ORDERED: LORAZEPAM INJ 2 MG/1 ML VIAL ONE ×4 (13:26→20:57)
[2016-08-03] MEDS: INSULIN GLARGINE,HUM.REC.ANLOG 300 UNIT/3 ML INSULN.PEN SUBCUT SCH (17:41)
[2016-08-03] MEDS: POLYVINYL ALCOHOL 1.4% OPH SOLN 15 ML OU SCH (17:41)
[2016-08-03] MEDS ORDERED: VANCOMYCIN HCL 750 MG in DEXTROSE 5%-WATER 250 ML IV SCH (18:00)
[2016-08-03] MEDS ORDERED: LORAZEPAM INJ 2 MG/1 ML VIAL IV PRN (20:51)
[2016-08-03] MEDS ORDERED: MORPHINE SULFATE 10 MG/ML INJ IV PRN (20:51)
[2016-08-04 03:21] VITALS: BP 95/20
--- NOTE | 2016-08-04 09:00 | PROGRESS NOTE E ---
Progress Note NAME: MEGHA HOPKINS : 1955 AGE: 61Y DATE: 08/03/2016 ROOM: 531 SUBJECTIVE: The patient remains still the same. Patient had a CT head done yesterday which was negative for any acute stroke. The patient still has a positive white count of 18,000. The patient otherwise is still not responding so patient was made DNR/DNI by the family. The patient is otherwise scheduled for dialysis, Dr. Pradhan. Other than that, patient remains in guarded condition. Very extensive discussions with the patient's brother, Suresh, regarding the patient's current condition with ongoing problems with the patient past several times in the hospital admissions we discussed the same thing about refusing the dialysis and developing more complications. The same thing happened this time, and patient's family knew very well about that, and the patient is currently in septic shock due to the urinary tract infection. Other than that, patient remains the same thing. OBJECTIVE: VITAL SIGNS: The patient's vital signs currently blood pressure was 110/80, currently on pressors. Temperature is 98.1. Pulse was 70-80 range. GENERAL: The patient is currently lying in bed not responding. HEAD AND NECK: Normocephalic. PERRLA. LUNGS: Decreased breath sounds bilaterally. HEART: S1, S2 are present. ABDOMEN: Soft. Bowel sounds present. EXTREMITIES: Some mild edema is present on the heel area. There were decubitus ulcers on the sacral area, some excoriations of stage I ulcer is present. Patient is otherwise edematous on both upper and lower extremities. NEUROLOGIC: Patient is not responding at this point. ASSESSMENT: 1. SEPTIC SHOCK. 2. ALTERED MENTAL STATUS DUE TO CONDITIONS. 3. GRAM-NEGATIVE URINARY TRACT INFECTION. 4. END-STAGE RENAL DISEASE ON HEMODIALYSIS. 5. DIASTOLIC CONGESTIVE HEART FAILURE. 6. BREAST CANCER. 7. TYPE 2 DIABETES. 8. HYPOKALEMIA. PLAN: At this point, extensive discussions with Suresh, the patient's brother, made him DNR/DNI, and finally the family agreeable to more comfort care and understand about the comfort care. Patient pretty much discussed with Dr. Mcdonough and Dr. Pradhan and agree all about that with the patient's end-stage conditions. Again, the patient had this ongoing problem before, and the patient has guarded condition. The patient is made at this point comfort care. More than 35 minutes spent examining the patient and discussing with coordinating care. DICTATING PHYSICIAN: DEMETRIS BLACKMAN M.D. [id number] PHY#: [id number] ID: [id number] JOB#: [id number] ACCT: [id number] cc: >
--- NOTE | 2016-08-04 09:15 | PROGRESS NOTE E ---
Progress Note NAME: MEGHA HOPKINS : 1955 AGE: 61Y DATE: 08/03/2016 ROOM: 531 SUBJECTIVE: The patient was seen today in the hospital. She is currently on BiPAP and looks quite morbid and very sick. She is quite unresponsive to all commands. She has got generalized anasarca. She is on double pressors and fighting to maintain blood pressure. We are trying to dialyze her and we were running at low vascular numbers and her blood pressure is dropping. Discussions were done with the treating nurse, Ana Cristina, as well as her ICU nurse. OBJECTIVE: GENERAL: Clinically, she looks very sick. VITAL SIGNS: Blood pressure in the upper 90's to low 100's with a pulse of 102. CARDIOVASCULAR SYSTEM: JVD was elevated. Both heart sounds were heard normally, regular, no rubs or gallops. LUNGS: Chest examination was clear to auscultation/percussion. She had bilateral scattered crackles. No wheezing was heard. ABDOMEN: Soft and nontender. No organomegaly. Bowel sounds heard normally. EXTREMITIES: Lower extremities with 1+ edema bilaterally. DIAGNOSTIC DATA: Labs reviewed. ASSESSMENT AND PLAN: 1. SEPTIC SHOCK. On double pressors. The patient is fighting hard to maintain blood pressures. 2. ESRD, ON HEMODIALYSIS. Patient is going to have difficulties to be on convention interval hemodialysis. If her family/[employer] wants everything done and at this point does not want her to be comfort measures, then she will need to be transferred to a tertiary care hospital for CVVH. I discussed the orders with the treating dialysis nurse. 3. MORBID OBESITY. 4. PREVIOUS HISTORY OF CVA. 5. DIABETES MELLITUS. 6. ANEMIA. STABLE. No need for any other erythropoietin today. I was going to discuss the case with the [employer], who was apparently in the waiting room. However, I did not see her brother in the waiting room and therefore, that discussion will have to be done later. The patient currently is a DNR/DNI. DICTATING PHYSICIAN: Radha QUINTANILLA M.D. [id number] PHY#: [id number] ID: [id number] JOB#: [id number] ACCT: [id number] cc:DIALYSIS , DAVITA >
--- NOTE | 2016-08-04 11:20 | PDOC PROGRESS REPORT ---
Subjective Progress Note for:: 08/04/16 Subjective:: awake unresponsive Remains unchanged Physical Exam Vital Signs: Temp Pulse Resp BP Pulse Ox 95.7 F L 81 12 95/20 L 86 L 08/04/16 03:22 08/04/16 03:22 08/04/16 04:00 08/04/16 03:22 08/04/16 04:00 Intake & Output 08/03/16 08/04/16 08/05/16 06:59 06:59 06:59 Intake Total 1488 Output Total 5 2140 Balance 1483 -2140 Weight 100.5 kg General appearance: PRESENT: no acute distress, disheveled, obese, well- developed Head exam: PRESENT: atraumatic, normocephalic Eye exam: PRESENT: conjunctiva pale Mouth exam: PRESENT: dry mucosa, neck supple Neck exam: ABSENT: carotid bruit, JVD, lymphadenopathy, thyromegaly Respiratory exam: PRESENT: decreased breath sounds, prolonged expiratory phas, rhonchi, symmetrical, unlabored, wheezes Cardiovascular exam: PRESENT: RRR, +S1, +S2 Pulses: PRESENT: normal radial pulses GI/Abdominal exam: PRESENT: normal bowel sounds, soft. ABSENT: distended, guarding, mass, organolmegaly, rebound, tenderness Rectal exam: PRESENT: deferred Gentrourinary exam: PRESENT: urethral discharge Musculoskeletal exam: PRESENT: normal inspection Neurological exam: PRESENT: awake Skin exam: PRESENT: dry, warm Results Laboratory Results: 08/02/16 05:50 08/02/16 05:50 Impressions: Head MRI 07/31/16 00:00 IMPRESSION: ATROPHY AND CHRONIC MICRO-VASCULAR ISCHEMIC CHANGES. OLD INFARCT INVOLVING A LARGE PORTION OF THE LEFT MIDDLE CEREBRAL ARTERY TERRITORY. NO ACUTE FINDINGS. Abdomen/Pelvis CT 08/01/16 00:00 IMPRESSION: 1. Pleural effusions, subcutaneous edema, and free fluid in the abdomen and pelvis. 2. Marked atrophy of the kidneys. Renal vascular calcifications. KUB X-Ray 08/01/16 21:40 IMPRESSION: NO RADIOGRAPHIC EVIDENCE FOR ACUTE ABDOMINAL DISEASE. Head CT 08/02/16 08:00 IMPRESSION: Motion artifact. Stable encephalomalacia left hemisphere from old infarct. No gross acute changes Abdomen Ultrasound 08/03/16 00:00 IMPRESSION: No acute findings; limitation. Chest X-Ray 08/03/16 06:00 IMPRESSION: Tip of a double lumen right internal jugular central line is in the right atrium; consider 11.6 cm retraction. Tip of a left mini port central line is in the right atrium; consider 5.4 cm retraction. Assessment & Plan - Diagnosis (1) Acute encephalopathy Is this a current diagnosis for this admission?: YesPlan: Family has elected to make patient comfort care I agree completely (2) Urinary tract infection Qualifiers: Urinary tract infection type: site unspecified Hematuria presence: without hematuria Qualified Code(s): N39.0 - Urinary tract infection, site not specified Is this a current diagnosis for this admission?: Yes (3) ESRD on dialysis Is this a current diagnosis for this admission?: Yes (4) Septic shock due to urinary tract infection Is this a current diagnosis for this admission?: No - Time Critical Time spent with patient: 25-34 minutes
--- NOTE | 2016-08-04 12:04 | DISCHARGE SUMMARY E ---
Summary NAME: MEGHA HOPKINS : 1955 AGE: 61Y ADMITTED: 07/30/2016 DISCHARGED: 08/04/2016 DATE OF : 08/04/2016 ADMITTING DIAGNOSES: 1. Septic shock with a gram-negative organism. 2. End-stage renal disease on hemodialysis. 3. Hypertension. 4. Type 2 diabetes mellitus. 5. Morbid obesity. 6. Hyperlipidemia. 7. Breast cancer. DISCHARGE DIAGNOSES: 1. Gram-negative septic shock with multiorgan failure. 2. Urinary tract infection. 3. End-stage renal disease on hemodialysis. 4. Hypertension. 5. Hyperlipidemia. 6. Type 2 diabetes mellitus. 7. Breast cancer. 8. Heel ulcer and stage I decubitus ulcers due to chronic debilitating condition. 9. Morbid obesity. CONSULTANTS: 1. Dr. Mcdonough, Pulmonary. 2. Dr. Naveed Pradhan, Nephrology. 3. Dr. Uriarte, General Surgery. LABORATORY DATA: Head MRI, head CT was done, which was negative for any acute stroke. Patient had an old MCA stroke. Patient had abdomen and pelvic CT done, which was also negative for any acute findings. HOSPITAL COURSE: This is a 61-year-old female with chronic debilitating condition for the last so many years, living in a snf, was unable to move from the bed due to morbid obesity, end-stage renal disease, type 2 diabetes, breast cancer, and multiple other comorbidities. The patient had several hospital admissions. They refused further dialysis and the patient was refused on and off in the snf. Very extensive discussions with the family in the past about that refusing dialysis causing multiple complications and the problems. Patient since the last several months was doing more often. Patient was found unresponsive in the snf, according to the snf staff. She was brought to the emergency department. Initially, patient was thought to have an acute stroke. Her initial MRI and CT scan were done, which were negative for any acute strokes. Patient has a history of a stroke in the MCA in the past. Patient was put in a tele bed. When I saw the patient after covering on Monday, patient's blood pressure was lower, and at this point patient was put in the intensive care unit and started Veto and Levo drips. I discussed with Naveed Pradhan and unable to do the dialysis because of the low blood pressure. Patient at this point was in very much guarded condition. Patient's liver enzymes went up. Patient's urinary tract infection was positive with gram-negative rods. Patient was initially put on broad spectrum antibiotics. Patient also started developing some C. diff and put on Flagyl. Because of the septic shock and organ failure, had a hard time to do dialysis and creating more problems. Very extensive discussion with the patient's family with brother, Suresh, regarding the patient's chronic conditions. They made her DNR AND DNI and family requested at this point the comfort care and patient on 08/04/2016 with comfort care. Patient otherwise had multiple other comorbidities as above. There were discussions with the family in the past and they were informed on the last hospital admissions too. More than 45 minutes spent examining the patient with all of the coordinate care. DICTATING PHYSICIAN: DEMETRIS BLACKMAN M.D. [id number] PHY#: [id number] ID: [id number] JOB#: [id number] ACCT: [id number] cc:DEMETRIS BLACKMAN M.D. > MTDD
--- NOTE | 2016-08-04 12:23 | XCELERA REPORT ---
[address] [address] Transthoracic Echocardiogram Report Name: MEGHA HOPKINS Age: 61 yrs Gender: Female : 1955 Patient Status: Inpatient Patient Location: ICU\S\606\S\A Study Date: 08/02/2016 09:43 AM Height: 63 in Weight: 225 lb BSA: 2.0 m2 Procedure: A complete two-dimensional transthoracic echocardiogram was performed (2D, M-mode, spectral and color flow Doppler). The study was technically difficult with many images being suboptimal in quality. Reason For Study: PERIPHERAL EDEMA Ordering Physician: DEMETRIS BLACKMAN Performed By: Kristin Amezcua Interpretation Summary The study was technically difficult with many images being suboptimal in quality. The left ventricular ejection fraction is normal. Doppler measurements suggest pseudonormalized left ventricular relaxation, which is associated with grade II/IV or mild to moderate diastolic dysfunction There is borderline concentric left ventricular hypertrophy. The left ventricle is grossly normal size. Wall motion cannot be accurately commented on, but no definite regional wall motion abnormalities noted. The right ventricular systolic function is normal. The right atrium is normal in size The left atrial size is normal. There is a mild amount of mitral regurgitation There is no mitral valve stenosis. No aortic regurgitation is present. There is no aortic valve stenosis There is a trace to mild amount of tricuspid regurgitation There is mild to moderate pulmonary hypertension by echo Right ventricular systolic pressure is estimated to be elevated at 40- 50mmHg. The aortic root is not well visualized. The inferior vena cava appeared normal and decreased < 50% with respiration (RAP 10-15 mmHg) There is no pericardial effusion. MMode/2D Measurements \T\ Calculations RVDd: 3.2 cm LVIDd: 3.8 cm FS: 24.9 % Ao root diam: 3.0 cm IVSd: 1.1 cm LVIDs: 2.8 cm EDV(Teich): 61.1 ml LVPWd: 1.1 cm ESV(Teich): 30.5 ml Ao root area: 6.9 cm2 EF(Teich): 50.0 % LA dimension: 3.2 cm Doppler Measurements \T\ Calculations MV E max hola: MV P1/2t max hola: Ao V2 max: LV V1 max P.7 cm/sec 62.7 cm/sec 133.7 cm/sec 4.6 mmHg MV A max hola: MV P1/2t: 69.2 msec Ao max PG: LV V1 max: 65.6 cm/sec 7.2 mmHg 107.6 cm/sec MV E/A: 0.94 MVA(P1/2t): 3.2 cm2 MV dec slope: 265.5 cm/sec2 MV dec time: 0.23 sec PA V2 max: TR max hola: 90.8 cm/sec 306.8 cm/sec PA max PG: TR max P.6 mmHg 3.3 mmHg Left Ventricle The left ventricle is grossly normal size. There is borderline concentric left ventricular hypertrophy. The left ventricular ejection fraction is normal. Doppler measurements suggest pseudonormalized left ventricular relaxation, which is associated with grade II/IV or mild to moderate diastolic dysfunction. Wall motion cannot be accurately commented on, but no definite regional wall motion abnormalities noted. Right Ventricle The right ventricle is grossly normal size. There is normal right ventricular wall thickness. The right ventricular systolic function is normal. Atria The right atrium is normal in size. The left atrial size is normal. Interarterial septum not well visualized and not well dopplered. Cannot comment on ASD/PFO presence. Mitral Valve The mitral valve is grossly normal. There is no mitral valve stenosis. There is a mild amount of mitral regurgitation. Aortic Valve The aortic valve is not well visualized secondary to technical limitations. There is no aortic valve stenosis. No aortic regurgitation is present. Tricuspid Valve The tricuspid valve is not well visualized secondary to technical limitations. There is no tricuspid stenosis. There is a trace to mild amount of tricuspid regurgitation. There is mild to moderate pulmonary hypertension by echo. Right ventricular systolic pressure is estimated to be elevated at 40-50mmHg. Pulmonic Valve The pulmonic valve is not well visualized. Great Vessels The aortic root is not well visualized. The inferior vena cava appeared normal and decreased < 50% with respiration (RAP 10-15 mmHg). Effusions There is no pericardial effusion. : DEMETRIS BLACKMAN > Roberto Carlos Sanchez
[2016-08-08 10:17] LABS: CALCIUM 7.3 mg/dL (8.4-10.2); GLUCOSE 155 mg/dL (75-110)
[2016-08-08 10:18] LABS: ALANINE AMINOTRANSFERASE 138 U/L (9-52); ALBUMIN 1.5 g/dL (3.5-5.0); ALKALINE PHOSPHATASE 1182 U/L (38-126); ANION GAP 9 (5-19); ASPARTATE AMINO TRANSFERASE 368 U/L (14-36); BILIRUBIN,DIRECT 2.4 mg/dL (0.0-0.4); BILIRUBIN,TOTAL 2.4 mg/dL (0.2-1.3); BLOOD UREA NITROGEN 19 mg/dL (7-20); CARBON DIOXIDE 23 mmol/L (22-30); CHLORIDE 96 mmol/L (98-107); CREATININE RESULT 2.57 mg/dL (0.52-1.25); POTASSIUM 3.4 mmol/L (3.6-5.0); SODIUM 128.3 mmol/L (137-145); TOTAL PROTEIN 3.3 g/dL (6.3-8.2)
[2016-08-08 10:20] LABS: ARTERIAL BLOOD BASE EXCESS 1.3 mmol/L; ARTERIAL BLOOD O2 SATURATION 98.1 % (94-98)
[2016-08-08 11:15] LABS: HEMATOCRIT 31.6 % (36.0-47.0); HGB HCT DIFFERENCE -1.6; MEAN CORPUSCULAR HEMOGLOBIN 34.5 pg (27.0-33.4); MEAN CORPUSCULAR HGB CONC 31.6 g/dL (32.0-36.0); MEAN CORPUSCULAR VOLUME 109 fl (80-97); WHITE BLOOD COUNT 18.7 10^3/uL (4.0-10.5)
[2016-08-08 11:16] LABS: ANISOCYTOSIS 2+; BAND NEUTROPHILS % (MANUAL) 1 % (3-5); BASOPHILS % (MANUAL) 0 % (0-2); EOSINOPHILS % (MANUAL) 0 % (0-6); LYMPHOCYTES % (MANUAL) 6 % (13-45); OVALOCYTES 1+; POIKILOCYTOSIS 1+; POLYCHROMASIA 1+; RBC MORPHOLOGY COMMENT FOLDED RBCS NOTED; TARGET CELLS 1+; TOTAL CELLS COUNTED 100
[2016-08-08 11:17] LABS: PLATELET CLUMPS PRESENT
== END 2016-08-04 05:30 | DRG 871 ==
LOC: ER 14:51 → UNDOADMIN 17:28 → EH 17:28 → 5 23:16 → 4S 23:19 → 5 23:19 → ICU 08-01 09:01 → 5 08-04 04:30
PROVIDERS: ADMIT Family Medicine; ATTEND Family Medicine
PROC: 5A1D60Z (ICD-10-PCS; principal; 2016-08-01)
PROC: 02HV33Z Insertion of Infusion Device into Superior Vena Cava, Percutaneous Approach (ICD-10-PCS; 2016-08-01)
DX: A41.50 Gram-negative sepsis, unspecified (principal); N18.6 End stage renal disease; J18.9 Pneumonia, unspecified organism; R65.21 Severe sepsis with septic shock; I13.2 Hypertensive heart and chronic kidney disease with heart failure and with stage 5 chronic kidney disease, or end stage renal disease; I50.30 Unspecified diastolic (congestive) heart failure; N39.0 Urinary tract infection, site not specified; E11.22 Type 2 diabetes mellitus with diabetic chronic kidney disease; E66.01 Morbid (severe) obesity due to excess calories; Z68.39 Body mass index [BMI] 39.0-39.9, adult; E78.5 Hyperlipidemia, unspecified; C50.919 Malignant neoplasm of unspecified site of unspecified female breast; Z99.2 Dependence on renal dialysis; L89.601 Pressure ulcer of unspecified heel, stage 1; Z66 Do not resuscitate; Z86.73 Personal history of transient ischemic attack (TIA), and cerebral infarction without residual deficits; E11.51 Type 2 diabetes mellitus with diabetic peripheral angiopathy without gangrene; M10.9 Gout, unspecified; F01.50 Vascular dementia, unspecified severity, without behavioral disturbance, psychotic disturbance, mood disturbance, and anxiety; D63.1 Anemia in chronic kidney disease; B96.89 Other specified bacterial agents as the cause of diseases classified elsewhere; Z79.4 Long term (current) use of insulin; Z90.49 Acquired absence of other specified parts of digestive tract; Z90.710 Acquired absence of both cervix and uterus; Z90.11 Acquired absence of right breast and nipple; Z89.421 Acquired absence of other right toe(s); Z79.82 Long term (current) use of aspirin; Z79.899 Other long term (current) drug therapy; Z88.0 Allergy status to penicillin
CPT/HCPCS: 36415; 36600; 51701; 70450; 70551; 71010; 74000; 74176; 76700; 80048; 80053; 80076; 81001; 82140; 82550; 82553; 82803; 82962; 83605; 83690; 83880; 84484; 85025; 85610; 87040; 87045; 87086; 87088; 87186; 87205; 87493; 93005; 93010; 93306; 94660; 96374; 99285; C1751; J0696; J0743; J1335; J1642; J1644; J1815; J2060; J2270; J2370; J3370; J3490; J7060; J7620; P9047; S0028